=== PATIENT | male | born 1955 | race Caucasian/White ===

== ENCOUNTER 2020-10-08 14:13 | Emergency (ER) | payer MEDICARE ==
[~2020-10-08] VITALS: Ht 175.3 cm; Wt 113.4 kg
[2020-10-08 15:25] LABS: BASOPHILS ABSOLUTE AUTO 0.01 K/mm3 (0.00-0.23); BASOPHILS PERCENT AUTO 0 % (0-2); EOSINOPHILS ABSOLUTE AUTO 0.02 K/mm3 (0.00-0.68); EOSINOPHILS PERCENT AUTO 0 % (0-6); Hematocrit 47.3 % (37.0-53.0); Hemoglobin 16.2 g/dL (13.5-17.5); IMMATURE GRAN ABSOLUTE AUTO 0.01 K/mm3 (0.00-0.10); IMMATURE GRAN PERCENT AUTO 0 % (0-1); LYMPHOCYTES ABSOLUTE AUTO 1.59 K/mm3 (0.84-5.20); LYMPHOCYTES PERCENT AUTO 20 % (21-46); MONOCYTES ABSOLUTE AUTO 0.72 K/mm3 (0.16-1.47); MONOCYTES PERCENT AUTO 9 % (4-13); Mean Corpuscular HGB 30.2 pg (26.0-34.0); Mean Corpuscular HGB Conc 34.2 g/dL (31.5-36.5); Mean Corpuscular Volume 88 fL (80-100); Mean Platelet Volume 10.3 fL (9.1-12.4); NEUTROPHILS ABSOLUTE AUTO 5.51 K/mm3 (1.96-9.15); NEUTROPHILS PERCENT AUTO 70 % (41-73); Platelet Count 171 K/mm3 (150-400); RDW Standard Deviation 39.2 fL (35.1-46.3); Red Blood Cell Count 5.36 M/mm3 (4.30-5.90); White Blood Cell Count 7.86 K/mm3 (4.00-11.30)
[2020-10-08 15:50] LABS: Alanine Aminotransfer (ALT/SGP 36 U/L (12-78); Albumin, Blood 3.4 g/dL (3.4-5.0); Albumin/Globulin Ratio 0.9 (0.8-1.8); Alk Phos 92 U/L (50-136); Anion Gap 5 mmol/L (6-16); Aspartate Aminotrans (AST/SGOT 21 U/L (12-37); Blood Urea Nitrogen 7 mg/dL (8-24); Bun/Creatinine Ratio 7.8 (12.0-20.0); CO2, Blood 31 mmol/L (21-32); Chloride, Blood 102 mmol/L (98-108); Globulin, Blood 3.6 g/dL (2.2-4.0); Glomerular Filtration Rate >60 (60-); Glucose, Blood 97 mg/dL (70-99); Potassium, Blood 3.2 mmol/L (3.5-5.5); Sodium, Blood 138 mmol/L (136-145); Troponin I <0.015 ng/mL (0.000-0.040)
[2020-10-08 15:53] LABS: SARS-Cov-2 (COVID-19) PCR, MMC POSITIVE (NEGATIVE)
[2020-10-08] MEDS ORDERED: DEXA4 PO (16:43)
== END 2020-10-08 16:58 | disposition home or self-care (01) ==
LOC: ER 14:13
PROVIDERS: Physician Assistant
DX: U07.1 COVID-19 (principal); J44.9 Chronic obstructive pulmonary disease, unspecified; I10 Essential (primary) hypertension; F17.200 Nicotine dependence, unspecified, uncomplicated; Z79.899 Other long term (current) drug therapy
CPT/HCPCS: 36415; 71045; 80053; 83690; 83880; 84484; 85025; 93005; 93010; 94644; 96374; 96375; 99284-25; A9270; J1885; J7512; U0004

== ENCOUNTER → 2020-12-15 | Outpatient (CLI) | payer MEDICARE ==
[~2020-12-15] MED LIST: DEXA4 PO
[2020-12-15 13:42] LABS: BASOPHILS ABSOLUTE AUTO 0.02 K/mm3 (0.00-0.23); BASOPHILS PERCENT AUTO 0 % (0-2); EOSINOPHILS ABSOLUTE AUTO 0.04 K/mm3 (0.00-0.68); EOSINOPHILS PERCENT AUTO 0 % (0-6); Hematocrit 45.5 % (37.0-53.0); Hemoglobin 15.2 g/dL (13.5-17.5); IMMATURE GRAN ABSOLUTE AUTO 0.03 K/mm3 (0.00-0.10); IMMATURE GRAN PERCENT AUTO 0 % (0-1); LYMPHOCYTES ABSOLUTE AUTO 1.23 K/mm3 (0.84-5.20); LYMPHOCYTES PERCENT AUTO 12 % (21-46); MONOCYTES ABSOLUTE AUTO 0.52 K/mm3 (0.16-1.47); MONOCYTES PERCENT AUTO 5 % (4-13); Mean Corpuscular HGB 30.3 pg (26.0-34.0); Mean Corpuscular HGB Conc 33.4 g/dL (31.5-36.5); Mean Corpuscular Volume 91 fL (80-100); NEUTROPHILS ABSOLUTE AUTO 8.14 K/mm3 (1.96-9.15); NEUTROPHILS PERCENT AUTO 82 % (41-73); Platelet Count 203 K/mm3 (150-400); RDW Coefficient Variation 14.1 % (11.7-14.2); RDW Standard Deviation 46.5 fL (35.1-46.3); Red Blood Cell Count 5.02 M/mm3 (4.30-5.90); White Blood Cell Count 9.98 K/mm3 (4.00-11.30)
[2020-12-15 13:48] LABS: Anion Gap 7 mmol/L (6-16); Blood Urea Nitrogen 15 mg/dL (8-24); Bun/Creatinine Ratio 12.5 (12.0-20.0); CO2, Blood 29 mmol/L (21-32); Chloride, Blood 105 mmol/L (98-108); Glomerular Filtration Rate >60 (60-); Glucose, Blood 106 mg/dL (70-99); Potassium, Blood 3.7 mmol/L (3.5-5.5); Sodium, Blood 141 mmol/L (136-145)
== END | disposition home or self-care (01) ==
LOC: LAB SHORT 13:38 → LAB 13:38
PROVIDERS: Physician Assistant Medical
DX: H53.2 Diplopia (principal)
CPT/HCPCS: 80048; 85025

== ENCOUNTER 2023-08-23 15:20 | Inpatient (IN) | payer MEDICARE, OTHER ==
[~2023-08-23] VITALS: Ht 175.3 cm; Wt 90.7 kg
[~2023-08-23 15:20] MED LIST changes: +ACET325 PO; +ALBU3IS INH; +AMLO10 PO; +ASPI81CH PO; +ATOR20 PO; +BUPROPION XL150 M1 PO; +CLOP75 PO; +HYDCHL50 PO; +Incruse Ellipta 62.5 INH; +LOSARTAN POTAS100 M1 PO; +Spiriva Respimat INH; +Symbicort 160 mcg-4. INH; +TRAM50 PO; +TRIAMTERENE50 MG PO; +Ventolin/Proventil INH; +Viagra100 MG PO; +[UNRECOGNIZED DRUG - OTHER] PO
[2023-08-23] MEDS ORDERED: NS 1,000 ML IV SCH (16:05)
[2023-08-23 16:11] LABS: BASOPHILS ABSOLUTE AUTO 0.04 K/mm3 (0.00-0.23); BASOPHILS PERCENT AUTO 0 % (0-2); EOSINOPHILS ABSOLUTE AUTO 0.11 K/mm3 (0.00-0.68); EOSINOPHILS PERCENT AUTO 1 % (0-6); Hemoglobin 14.8 g/dL (13.5-17.5); IMMATURE GRAN ABSOLUTE AUTO 0.02 K/mm3 (0.00-0.10); IMMATURE GRAN PERCENT AUTO 0 % (0-1); LYMPHOCYTES ABSOLUTE AUTO 1.69 K/mm3 (0.84-5.20); LYMPHOCYTES PERCENT AUTO 19 % (21-46); MONOCYTES ABSOLUTE AUTO 0.77 K/mm3 (0.16-1.47); MONOCYTES PERCENT AUTO 9 % (4-13); Mean Corpuscular HGB 30.2 pg (26.0-34.0); Mean Corpuscular HGB Conc 33.6 g/dL (31.5-36.5); Mean Corpuscular Volume 90 fL (80-100); Mean Platelet Volume 10.5 fL (9.1-12.4); NEUTROPHILS ABSOLUTE AUTO 6.32 K/mm3 (1.96-9.15); NEUTROPHILS PERCENT AUTO 71 % (41-73); Platelet Count 231 K/mm3 (150-400); RDW Coefficient Variation 13.2 % (11.7-14.2); RDW Standard Deviation 42.7 fL (35.1-46.3); White Blood Cell Count 8.95 K/mm3 (4.00-11.30)
[2023-08-23 16:40] LABS: Albumin, Blood 2.8 g/dL (3.4-5.0); Albumin/Globulin Ratio 0.9 (0.8-1.8); Bilirubin, Total 1.4 mg/dL (0.1-1.0); Bun/Creatinine Ratio 17.9 (12.0-20.0); Creatinine, Blood 0.95 mg/dL (0.60-1.20); Potassium, Blood 3.9 mmol/L (3.5-5.5); Thyroid Stimulating Hormone 1.64 uIU/mL (0.360-4.800); Total Protein, Blood 5.8 g/dL (6.4-8.2)
[2023-08-24 00:02] LABS: Source, Urine Voided
[2023-08-24 00:08] LABS: Bilirubin, Urine Neg (Neg); Blood, Urine 1+ (Neg); Glucose Qualitative, Urine Neg (Neg); Ketones, Urine 1+ (Neg); Leukocyte Esterase, Urine Neg (Neg); Nitrite, Urine Neg (Neg); Protein, Urine 1+ (Neg); Specific Gravity, Urine 1.025 (1.003-1.022); Urobilinogen, Urine 3+ (Normal)
[2023-08-24 00:27] LABS: Appearance, Urine Clear (Clear); Color, Urine Yellow (P-Yellow)
[2023-08-24 00:28] LABS: Bacteria Rare /hpf; Mucus Light (0-Heavy); Red Blood Cells, Urine 0-2 /hpf (0-2); Squamous Epithelial Cells Rare /hpf (Few); White Blood Cells, Urine 0-2 /hpf (0-5)
[2023-08-24 19:35] VITALS: BP 165/98
--- NOTE | 2023-08-24 20:08 | NUR ---
DAY SHIFT SUMMARY: A&Ox3-4. PLEASANT AND COOPERATIVE WITH CARE. CALLS APPRORPIATELY. ABLE TO ADVOCATE MOST NEEDS. FLAT AFFECT. FEEDS SELF. LEFT-SIDED DEFICIT WITH LEFT-HANDED SWELLING. WOUND TO SACRUM BEGINNING; MEPILEX PLACED. WOUND TO LEFT POSTERIOR WRIST; UNSURE OF HOW HE GOT IT. USES URINAL. BED IN LOWEST POSITION. CALL LIGHT WITHIN REACH. NEEDS MET. REPORT TO ONCOMING RN.
[2023-08-24 20:26] VITALS: BP 151/92
[2023-08-25 03:49] VITALS: BP 177/96
[2023-08-25 04:25] VITALS: BP 139/93
[2023-08-25 05:23] LABS: BASOPHILS ABSOLUTE AUTO 0.03 K/mm3 (0.00-0.23); BASOPHILS PERCENT AUTO 0 % (0-2); EOSINOPHILS ABSOLUTE AUTO 0.08 K/mm3 (0.00-0.68); EOSINOPHILS PERCENT AUTO 1 % (0-6); Hematocrit 44.1 % (37.0-53.0); Hemoglobin 14.6 g/dL (13.5-17.5); IMMATURE GRAN ABSOLUTE AUTO 0.01 K/mm3 (0.00-0.10); IMMATURE GRAN PERCENT AUTO 0 % (0-1); LYMPHOCYTES ABSOLUTE AUTO 2.06 K/mm3 (0.84-5.20); LYMPHOCYTES PERCENT AUTO 23 % (21-46); MONOCYTES ABSOLUTE AUTO 0.73 K/mm3 (0.16-1.47); MONOCYTES PERCENT AUTO 8 % (4-13); Mean Corpuscular HGB 29.3 pg (26.0-34.0); Mean Corpuscular HGB Conc 33.1 g/dL (31.5-36.5); Mean Corpuscular Volume 89 fL (80-100); Mean Platelet Volume 10.6 fL (9.1-12.4); NEUTROPHILS ABSOLUTE AUTO 6.02 K/mm3 (1.96-9.15); NEUTROPHILS PERCENT AUTO 67 % (41-73); Platelet Count 206 K/mm3 (150-400); RDW Coefficient Variation 12.9 % (11.7-14.2); RDW Standard Deviation 42.1 fL (35.1-46.3); Red Blood Cell Count 4.98 M/mm3 (4.30-5.90); White Blood Cell Count 8.93 K/mm3 (4.00-11.30)
--- NOTE | 2023-08-25 05:53 | NUR ---
IT INVESTMENT/PORTFOLIO MANAGER PATIENT IS A&OX4, BLOOD PRESSURE RUNS FROM SUSHILA TO NORMAL WITH IN MINUTES. STAFF HAS BEEN CHECKING IT AT LEST FEW MINUTES APART TO GET AN ACCURATE READING. PATIENT HAS URINARY URGENCY AND PATIENT IS FORGETFUL WHEN IT COMES TO USING THE CALL LIGHT. BED IS AT A LOWER POSITION, CALL LIGHT IS WITHIN REACH, AND URINAL AT BEDSIDE.
[2023-08-25 06:04] LABS: Albumin, Blood 2.7 g/dL (3.4-5.0); Albumin/Globulin Ratio 0.9 (0.8-1.8); Bilirubin, Total 1.1 mg/dL (0.1-1.0); Bun/Creatinine Ratio 15.3 (12.0-20.0); Calcium, Blood 7.9 mg/dL (8.5-10.1); Creatinine, Blood 0.78 mg/dL (0.60-1.20); Globulin, Blood 2.9 g/dL (2.2-4.0); Magnesium, Blood 2.2 mg/dL (1.6-2.4); Potassium, Blood 3.5 mmol/L (3.5-5.5); Total Protein, Blood 5.6 g/dL (6.4-8.2)
[2023-08-25 08:27] VITALS: BP 143/93
[2023-08-25] MEDS ORDERED: Enoxaparin 40 MG/0.4 ML SYR SC SCH (09:00)
[2023-08-25] MEDS ORDERED: Losartan Potassium 25 MG Tab PO SCH (09:00)
[2023-08-25] MEDS ORDERED: Clopidogrel Bisulfate 75 MG Tab PO SCH (09:00)
[2023-08-25] MEDS ORDERED: Aspirin 81 MG Chew PO SCH (09:00)
--- NOTE | 2023-08-25 12:32 | NUR ---
MET WITH PATIENT TO DISCUSS POLST AND CODE STATUS. PATIENT WAS AWOKEN WHEN I ENTERED THE ROOM. REVIEWED POLST FORM AND HE ELECTED FOR COMFORT MEASURES ONLY AND DNR CODE STATUS. PATIENT UNABLE TO SIGN DUE TO HAND WOUND
[2023-08-25 15:48] VITALS: BP 136/87
--- NOTE | 2023-08-25 18:28 | NUR ---
SHIFT SUMMARY: PATIENT REFUSES MORNING MEDS; DR. REGAN NOTIFIED. NO EVENTS OR CHANGES WITH PATIENT THROUGHOUT THE SHIFT. PLAN OF CARE ONGOING.
[2023-08-25 19:24] VITALS: BP 137/90
[2023-08-26 03:52] VITALS: BP 162/85
[2023-08-26 07:18] VITALS: BP 155/99
[2023-08-26 14:34] VITALS: BP 119/74
[2023-08-26 19:30] VITALS: BP 136/87
[2023-08-27 04:26] VITALS: BP 118/67
--- NOTE | 2023-08-27 05:36 | NUR ---
EQUIPMENT MAINTENANCE SUPERVISOR UNABLE TO ASSESS PATIENT ORIENTATION, PATIENT IS NONVERBAL BUT SMILES WHEN HER NAME IS CALLED. PATIENT IS BEDBOUND, AND Q2TURN. PATIENT HAS A LIN IN THAT IS DRAINING WELL. PATIENT IS A G-TUBE AND HAS JEVITY 1.2 RUNNING AT 45ML AN HOUR AUTH A 250 FLUID FLUSH [id number].
--- NOTE | 2023-08-27 05:55 | NUR ---
SCALE AGENT PATIENT IS A&OX1-2, CONFUSED, AND IMPULSIVELY GET UP TO USE THE URINAL. PATIENT IS FAILURE TO THRIVE AND HAS BEED REFUSING HAS MEDS. NO MEDS WERE SCHEDULE FOR HIM LASTNIGHT. PATIENT ALSO REFUSES FOOD DURING THE DAY SHIFT BUT FELT VERY HUNGRY LAST IGHT AND REQUESTED FOR A SANDWISH. PATIENT IS CONTINENT /INCONTINENT, HAS URINARY URGENCY. PATIENT SLEPT GOOD LASTNIGHT AND HAD MINIMAL IMPULSIVENESS.
[2023-08-27 07:33] VITALS: BP 133/80
[2023-08-27 15:42] VITALS: BP 161/91
--- NOTE | 2023-08-27 16:59 | NUR ---
NO ACUTE CHANGES. PT CONTINUED TO BE AOX1-2. PT IS INCONTENT OF URINE AND HAS BEEN RESTING IN BED ALL DAY. PT ALLOWED HIMSELF TO BE CLEANED UP AND HAS BEEN COOPERATIVE OF CARE. BED ALARM IS IN PLACE WILL CONTINUE TO MONITOR.
[2023-08-27 19:33] VITALS: BP 131/80
[2023-08-28 04:33] VITALS: BP 174/101
--- NOTE | 2023-08-28 06:51 | NUR ---
END OF SHIFT SUMMARY PT A&O TO PERSON, SOMETIMES PLACE/SITUATION. REPOSITIONS SELF IN BED. INCONTINENT OF URINE, FREQUENT YARELI CARE PROVIDED. NO ACUTE EVENTS OVERNIGHT.
[2023-08-28 07:02] VITALS: BP 149/71
--- NOTE | 2023-08-28 09:00 | NUR ---
Pt laying in bed watching tv, a/ox2, cooperative with care, follows commands well, denies pain, lungs are clear dim in bases, resp even and unlabored, no cough noted, hrr, no edema noted, ppp+1 cap refill <3 sec, vs stable, afebrile, piv to rfa site is clear and patenet, s.l., btx4, abd flat soft nontender, voids via urinal and is incont, briefs in place, skin c/w/d, antonio, 1-2 person assist, agueda, call light in reach.
[2023-08-28 15:33] VITALS: BP 161/96
--- NOTE | 2023-08-28 18:04 | NUR ---
pt had an uneventful day, has required several bed changes today, no acute changes this shift. call light in reach.
[2023-08-28 19:34] VITALS: BP 136/90
[2023-08-29 04:15] VITALS: BP 154/83
--- NOTE | 2023-08-29 04:25 | NUR ---
END OF SHIFT SUMMARY PT ALERT, ORIENTED TO PERSON, SOMETIMES PLACE/SITUATION. PT REQUESTING SNACKS, TOLERATING WELL, FEEDING SELF WITH RUE SAFELY ONLY REQUIRING ASSIST WITH OPENING PACKAGING. SEVERAL INCONTINENT VOIDS, YARELI CARE PROVIDED. NO ACUTE EVENTS OVERNIGHT.
[2023-08-29 07:46] VITALS: BP 146/89
[2023-08-29 15:08] VITALS: BP 128/86
--- NOTE | 2023-08-29 17:55 | NUR ---
SHIFT SUMMARY SPOKE WITH DR. CHARLES TODAY. PLAN TO PERSUE PHYSICAL & OCCUPATIONAL THERAPY WE WAIT FOR PLACEMENT. PT IS A HIGH RISK FOR FAILURE TO THRIVE HE HAS LITTLE MOTIVATION. PT DID WORK WITH PT/OT TODAY. UP TO CHAIR ONCE FOR A FEW HOURS. VS REVIEWED. CALL LIGHT IN REACH. BED ALARM IN PLACE. REDNESS NOTED TO R KNEE. SLIGHTLY WARM TO TOUCH. PT STATES NO DISCOMFORT HOWEVER. NO OTHER ACUTE CHANGES IN ASSESSMENT AT THIS TIME.
[2023-08-29 21:54] VITALS: BP 149/91
[2023-08-30 02:54] VITALS: BP 169/100
[2023-08-30 05:58] LABS: BASOPHILS ABSOLUTE AUTO 0.04 K/mm3 (0.00-0.23); BASOPHILS PERCENT AUTO 1 % (0-2); EOSINOPHILS ABSOLUTE AUTO 0.11 K/mm3 (0.00-0.68); EOSINOPHILS PERCENT AUTO 1 % (0-6); Hematocrit 43.2 % (37.0-53.0); Hemoglobin 14.4 g/dL (13.5-17.5); IMMATURE GRAN ABSOLUTE AUTO 0.02 K/mm3 (0.00-0.10); IMMATURE GRAN PERCENT AUTO 0 % (0-1); LYMPHOCYTES ABSOLUTE AUTO 2.34 K/mm3 (0.84-5.20); LYMPHOCYTES PERCENT AUTO 27 % (21-46); MONOCYTES ABSOLUTE AUTO 0.62 K/mm3 (0.16-1.47); MONOCYTES PERCENT AUTO 7 % (4-13); Mean Corpuscular HGB 29.9 pg (26.0-34.0); Mean Corpuscular HGB Conc 33.3 g/dL (31.5-36.5); Mean Corpuscular Volume 90 fL (80-100); Mean Platelet Volume 11.2 fL (9.1-12.4); NEUTROPHILS PERCENT AUTO 63 % (41-73); Platelet Count 209 K/mm3 (150-400); RDW Coefficient Variation 13.6 % (11.7-14.2); RDW Standard Deviation 44.3 fL (35.1-46.3); Red Blood Cell Count 4.81 M/mm3 (4.30-5.90); White Blood Cell Count 8.53 K/mm3 (4.00-11.30)
--- NOTE | 2023-08-30 06:12 | NUR ---
SUMMARY: PT A/O TO PERSON, PLACE AND OCCASIONALLY SITUATION. BED ALARM IS ON FOR IMPULSIVITY AND HE'S UP W/1-2PA TO BSC. HE IS CONTINENT/INCONTINENT W/ATTENDS CHANGED PRN. L.SIDE WEAKNESS FROM PREVIOUS CVA PERSISTS AND L.ARM REMAINS SWOLLEN AND ELEVATED ON PILLOWS. PT DENIES PAIN AND ALL OTHER COMPLAINTS. NO ACUTE CHANGES, VSS/AFEBRILE. SNF PLACEMENT PENDING. WCTM AND REPORT TO DAY RN.
[2023-08-30 06:44] LABS: Albumin, Blood 2.6 g/dL (3.4-5.0); Albumin/Globulin Ratio 0.9 (0.8-1.8); Bilirubin, Total 0.8 mg/dL (0.1-1.0); Calcium, Blood 8.3 mg/dL (8.5-10.1); Creatinine, Blood 0.91 mg/dL (0.60-1.20); Potassium, Blood 3.7 mmol/L (3.5-5.5); Total Protein, Blood 5.6 g/dL (6.4-8.2)
[2023-08-30 07:55] VITALS: BP 147/84
--- NOTE | 2023-08-30 10:54 | NUR ---
SPOKE WITH PHYSICAN ABOUT PT BEING UNCOMPLIENT AND REFUSING TO WORK WITH ST. RECEIVED T.O. FOR REGULAR DIET.
[2023-08-30 15:19] VITALS: BP 130/77
--- NOTE | 2023-08-30 15:45 | NUR ---
SHIFT SUMMARY PT IS A&O TO SELF, PLACE AND SOMEWHAT OF SITUATION. PT NOTED TO BE ASSIST X1 WITH DANISH WALKER. PT GOT UP AND ATE BREAKFAST IN CHAIR THIS MORNING. PT REFUSED TO WORK WITH OT THIS SHIFT. PT CONT TO REMAIN INCONT OF BLADDER. LEFT SIDED WEAKNESS D/T PREVIOUS CVA. PT LEFT HAND NOTED TO HAVE SOME SWELLING, ELEVATED ON PILLOW WHILE IN BED.
[2023-08-30 19:17] VITALS: BP 121/76
[2023-08-31 02:39] VITALS: BP 163/87
--- NOTE | 2023-08-31 06:01 | NUR ---
SUMMARY: PT A/O TO PERSON AND PLACE BUT SITUATIONAL AWARENESS FLUCTUATES. BED ALARM IS ON FOR IMPULSIVITY AND HE'S UP W/1-2PA W/DANISH WALKER. HE HAS L.SIDE WEAKNESS FROM PREVIOUS CVA AND L.ARM REMAINS EDEMATOUS. PT IS MOSTLY INCONTINENT OF BOWEL AND BLADDER AND HAD X1 STOOL INCONTINENCE REQUIRING SHOWER, LINEN AND ATTENDS CHANGE. HE DENIES PAIN AND ALL OTHER COMPLAINTS. NO ACUTE CHANGES, VSS/AFEBRILE. SNF PLACEMENT PENDING. WCTM AND REPORT TO DAY RN.
[2023-08-31 09:42] VITALS: BP 130/108
[2023-08-31 19:22] VITALS: BP 145/87
--- NOTE | 2023-08-31 19:29 | NUR ---
DAY SHIFT SUMMARY: NO ACUTE EVENTS TO REPORT THIS SHIFT. PT A&O X1-2 (PLACE & SELF); CALM AND COOPERATIVE WITH CARE. RESIDUAL LEFT-SIDED WEAKNESS R/T HX CVA; PT UP WITH 2-ASSIST & DANISH-WALKER. NO C/O PAIN THIS SHIFT. PT & OT FOLLOWING. REPORT GIVEN TO ONCOMING RN.
--- NOTE | 2023-08-31 21:08 | NUR ---
PATIENT APPEARS TO BE SLEEPING AT THIS TIME. DOES NOT APPEAR TO BE IN ANY DISTRESS. CARE IS ONGOING.
[2023-09-01 02:24] VITALS: BP 145/77
--- NOTE | 2023-09-01 03:57 | NUR ---
SHIFT SUMMARY PATIENT IS ORIENTED TO SELF AND PLACE ONLY. COOPERATIVE AND CALM WITH CARE. PATIENT IS A TWO PERSON ASSIST WITH A DANISH WALKER. BED ALARM IS ON THE PATIENT HAS A TENDENCY TO BE IMPULSIVE. THERE ARE NO ISSUES WITH THIS DURING THIS SHIFT. PATIENT DENIES PAIN OR DISCOMFORT. CONDOM CATHETER PLACED IN THE EARLY EVENING, WHICH IS EFFECTIVE IN RELIEVING THE PATIENT'S URINARY URGENCY AND ISSUES RELATED TO THAT. PATIENT SLEEPS THROUGHOUT MOST OF SHIFT. WAKES IN THE MORNING AND WATCHES TELEVISION. DENIES NEEDS AT THIS TIME. AWAITING PLACEMENT INTO SNF. THIS RN WILL RELAY ALL INFORMATION TO ONCOMING AM NURSE. NO ACUTE CHANGES DURING THIS SHIFT.
[2023-09-01 05:34] LABS: BASOPHILS ABSOLUTE AUTO 0.03 K/mm3 (0.00-0.23); BASOPHILS PERCENT AUTO 0 % (0-2); EOSINOPHILS ABSOLUTE AUTO 0.11 K/mm3 (0.00-0.68); EOSINOPHILS PERCENT AUTO 1 % (0-6); Hemoglobin 13.9 g/dL (13.5-17.5); IMMATURE GRAN ABSOLUTE AUTO 0.02 K/mm3 (0.00-0.10); IMMATURE GRAN PERCENT AUTO 0 % (0-1); LYMPHOCYTES ABSOLUTE AUTO 2.19 K/mm3 (0.84-5.20); LYMPHOCYTES PERCENT AUTO 24 % (21-46); MONOCYTES PERCENT AUTO 8 % (4-13); Mean Corpuscular HGB 29.8 pg (26.0-34.0); Mean Corpuscular HGB Conc 33.1 g/dL (31.5-36.5); Mean Corpuscular Volume 90 fL (80-100); Mean Platelet Volume 10.9 fL (9.1-12.4); NEUTROPHILS ABSOLUTE AUTO 6.06 K/mm3 (1.96-9.15); NEUTROPHILS PERCENT AUTO 67 % (41-73); Platelet Count 183 K/mm3 (150-400); RDW Coefficient Variation 13.5 % (11.7-14.2); RDW Standard Deviation 44.8 fL (35.1-46.3); Red Blood Cell Count 4.67 M/mm3 (4.30-5.90); White Blood Cell Count 9.11 K/mm3 (4.00-11.30)
[2023-09-01 06:06] LABS: Albumin, Blood 2.7 g/dL (3.4-5.0); Bun/Creatinine Ratio 19.7 (12.0-20.0); Calcium, Blood 8.1 mg/dL (8.5-10.1); Creatinine, Blood 0.91 mg/dL (0.60-1.20); Globulin, Blood 2.8 g/dL (2.2-4.0); Total Protein, Blood 5.5 g/dL (6.4-8.2)
[2023-09-01 07:16] VITALS: BP 124/87
[2023-09-01] MEDS ORDERED: Atorvastatin 40 MG Tab PO SCH (09:00)
[2023-09-01 15:33] VITALS: BP 127/81
--- NOTE | 2023-09-01 15:39 | NUR ---
SHIFT SUMMARY PT RESTING QUIETLY AT START OF SHIFT. WOKE EASILY FOR CARE. PT VERY WEAK ON L SIDE; GROSS MOTOR SKILLS ONLY. PT REFUSING TO WORK WITH THERAPY TODAY. PT LATER AGREEABLE TO GET UP TO CHAIR FOR LUNCH, BUT UNABLE TO DO SO AFTER STANDING AT SIDE OF BED FOR TEN MINUTES AND COULDN'T GET FEET OR LEGS TO MOVE EVEN TO PIVOT. PT IS A HEAVY 2P MAX ASSIST USING G/B AND HEMIWALKER JUST TO STAND AT EOB. PT UNABLE TO USE L HAND AT ALL. IS ABLE TO BEAR WT ON L LEG, BUT UNABLE TO MAKE L LEG/L FOOT MOVE ONCE STANDING. PT COULD STATE HIS NAME THIS AM, BUT COULD NOT REMEMBER HIS BIRTHDAY. LEAD DIE MOLDER AND PALLIATIVE CARE UPDATED ON PT STATUS. NO C/O PAIN. CONDOM CATH IN PLACE. DENIES FURTHER NEEDS AT THIS TIME.
--- NOTE | 2023-09-01 15:56 | NUR ---
MET WITH KENDY TO DISCUSS GOALS OF CARE. PER PT AND OT HE HAS NOT WORKED WITH THEM IN A FEW DAYS. I EXPRESSED CONCERN FOR HIS ABILITY TO CARE FOR HIMSELF LIVING ALONE IF HE DOESNT MAKE IMPROVMENTS PHYSICALLY. HE REPORTED THAT HE WANTS TO GO HOME. HE REPORTED THAT HE WOULD BE FINE AND WASNT CONCERNED ABOUT HIS PHYSICAL LIMITATIONS. PER ELECTRICAL TROUBLESHOOTER HE WAS ABLE TO STAND AT THE SIDE OF THE BED BUT WAS VERY UNSTABLE AND SHE WAS CONCERNED HE WOULD FALL. HE WAS NOT ABLE TO MAKE ANY PURPOSEFUL STEPS FORWARD. WE DISCUSSED THAT HE IS AT A [place] AND HE CAN CHOOSE TO WORK WITH THERAPY AND TRY TO IMPROVE AND GET STRONG ENOUGH TO SAFELY RETRUN HOME, OR HE CAN FOCUS CARE ON COMFORT AND QUALITY AND THINK ABOUT HOSPICE SERVICES. HIS KPS SCORE IS 50%. REQUESTED A COG EVAL TO ENSURE HE IS CLEAR OF MIND AND ABLE TO MAKE INFORMED DECISIONS. PC WILL REAMIN AVALIABLE.
[2023-09-01 20:31] VITALS: BP 135/86
[2023-09-02 03:26] VITALS: BP 169/101
--- NOTE | 2023-09-02 03:53 | NUR ---
Pt left hand has a wound on top of it, left hand is also swollen, pt denied any pain when i asked it if was hurting at this time.
--- NOTE | 2023-09-02 04:22 | NUR ---
SHIFT SUMMARY PATIENT HAD NO ACUTE CHANGES. AXOX 2 AND BEDREST. INCONTINENT. LS WEAKNESS. PIV INTACT. DENIES CHEST PAIN, SOB, AND N/V. VSS/AFEBRILE. SLEPT MOST OF THE SHIFT. CALL LIGHT IN REACH. BED IN LOWEST POSITION AND ALARM ACTIVATED. WILL CONTINUE TO MONITOR UNTIL DAY SHIFT NURSE ASSUMES CARE.
[2023-09-02 05:35] LABS: BASOPHILS ABSOLUTE AUTO 0.04 K/mm3 (0.00-0.23); BASOPHILS PERCENT AUTO 0 % (0-2); EOSINOPHILS ABSOLUTE AUTO 0.15 K/mm3 (0.00-0.68); EOSINOPHILS PERCENT AUTO 2 % (0-6); Hematocrit 41.5 % (37.0-53.0); Hemoglobin 13.8 g/dL (13.5-17.5); IMMATURE GRAN ABSOLUTE AUTO 0.02 K/mm3 (0.00-0.10); IMMATURE GRAN PERCENT AUTO 0 % (0-1); LYMPHOCYTES ABSOLUTE AUTO 2.11 K/mm3 (0.84-5.20); LYMPHOCYTES PERCENT AUTO 23 % (21-46); MONOCYTES ABSOLUTE AUTO 0.71 K/mm3 (0.16-1.47); MONOCYTES PERCENT AUTO 8 % (4-13); Mean Corpuscular HGB 30.1 pg (26.0-34.0); Mean Corpuscular HGB Conc 33.3 g/dL (31.5-36.5); Mean Corpuscular Volume 91 fL (80-100); NEUTROPHILS ABSOLUTE AUTO 6.12 K/mm3 (1.96-9.15); NEUTROPHILS PERCENT AUTO 67 % (41-73); Platelet Count 195 K/mm3 (150-400); RDW Coefficient Variation 13.4 % (11.7-14.2); RDW Standard Deviation 44.6 fL (35.1-46.3); Red Blood Cell Count 4.58 M/mm3 (4.30-5.90); White Blood Cell Count 9.15 K/mm3 (4.00-11.30)
[2023-09-02 05:58] LABS: Bun/Creatinine Ratio 27.2 (12.0-20.0); Calcium, Blood 8.2 mg/dL (8.5-10.1); Creatinine, Blood 0.77 mg/dL (0.60-1.20); Potassium, Blood 3.8 mmol/L (3.5-5.5)
[2023-09-02 07:25] VITALS: BP 155/100
[2023-09-02 15:43] VITALS: BP 139/121
--- NOTE | 2023-09-02 18:38 | NUR ---
PT IS AOX2 AND COOPERATIVE OF CARE. PT IS INCONTENT OF BOWEL AND URINE. PT WAS ABLE TO BE UP IN CHAIR A TWO PERSON ASSIST. PT DOES NOT ALWAYS CALL, BUT WILL AT TIMES. BED ALARM IS IN PLACE WILL CONTINUE TO MONITOR.
[2023-09-02 21:22] VITALS: BP 159/92
[2023-09-03 03:43] VITALS: BP 165/91
[2023-09-03 05:18] LABS: BASOPHILS ABSOLUTE AUTO 0.04 K/mm3 (0.00-0.23); BASOPHILS PERCENT AUTO 0 % (0-2); EOSINOPHILS ABSOLUTE AUTO 0.13 K/mm3 (0.00-0.68); EOSINOPHILS PERCENT AUTO 1 % (0-6); Hematocrit 44.3 % (37.0-53.0); Hemoglobin 14.3 g/dL (13.5-17.5); IMMATURE GRAN ABSOLUTE AUTO 0.03 K/mm3 (0.00-0.10); IMMATURE GRAN PERCENT AUTO 0 % (0-1); LYMPHOCYTES ABSOLUTE AUTO 2.04 K/mm3 (0.84-5.20); LYMPHOCYTES PERCENT AUTO 20 % (21-46); MONOCYTES ABSOLUTE AUTO 0.76 K/mm3 (0.16-1.47); MONOCYTES PERCENT AUTO 7 % (4-13); Mean Corpuscular HGB Conc 32.3 g/dL (31.5-36.5); Mean Corpuscular Volume 93 fL (80-100); Mean Platelet Volume 10.8 fL (9.1-12.4); NEUTROPHILS ABSOLUTE AUTO 7.26 K/mm3 (1.96-9.15); NEUTROPHILS PERCENT AUTO 71 % (41-73); Platelet Count 200 K/mm3 (150-400); RDW Coefficient Variation 13.2 % (11.7-14.2); Red Blood Cell Count 4.77 M/mm3 (4.30-5.90); White Blood Cell Count 10.26 K/mm3 (4.00-11.30)
--- NOTE | 2023-09-03 06:13 | NUR ---
SHANK BREAKER SUMMARY PT A/OX2. MULTPLE EPISODES OF INCONTINENCE T/O THE NIGHT--FOUND PT BEDDING TO BE SOAKED BUT BRIEF TO BE DRY. PT COULD NOT EXPLAIN HOW THAT HAPPENED. PT HYPERTENSIVE WITH VITALS CHECKS. PT ABLE TO MAKE NEEDS KNOWN WHEN PROMPTED. PT HAD VISITOR IN THE EVENING NAMED SABINA; STATES HE IS A FRIEND AND CONTACT FOR THE PT; PT AFFIRMED HE WAS AGREEABLE TO THE CONTACT. SABINA'S NUMBER IS [phone]. SABINA STATES FRIEND NAMED YANET WILL BE MOVING IN TO THE PT'S HOME TO BE STEAM BOILER FIREMAN CAREGIVER. YANET'S NUMBER IS [phone].
[2023-09-03 06:26] LABS: Albumin, Blood 2.8 g/dL (3.4-5.0); Albumin/Globulin Ratio 0.9 (0.8-1.8); Bun/Creatinine Ratio 18.7 (12.0-20.0); Calcium, Blood 8.1 mg/dL (8.5-10.1); Creatinine, Blood 0.85 mg/dL (0.60-1.20); Globulin, Blood 3.1 g/dL (2.2-4.0); Potassium, Blood 3.8 mmol/L (3.5-5.5); Total Protein, Blood 5.9 g/dL (6.4-8.2)
[2023-09-03 07:34] VITALS: BP 135/76
[2023-09-03 15:19] VITALS: BP 121/74
--- NOTE | 2023-09-03 18:06 | NUR ---
SHIFT SUMMARY PATIENT A/OX2, CONFUSED, AND FORGETFUL. TRANSFERRED TO THE CHAIR TWICE TODAY FOR MEAL TIME. BED ALARM AND CHAIR ALARM IN PLACE, PATIENT FORGETFUL AND ATTEMPTS TO TRANSFER INDEPENDENTLY. VITAL SIGNS STABLE, DENIES PAIN THIS SHIFT. PATIENT WITH GOOD APPETITE, EATING 75-100% OF ALL MEALS. PATIENT INCONTINENT OF URINE. NO OTHER CONCERNS AT THIS TIME.
[2023-09-03 19:32] VITALS: BP 133/86
[2023-09-04 01:55] VITALS: BP 148/77
--- NOTE | 2023-09-04 05:02 | NUR ---
PARTNERSHIP MANAGER SUMMARY PT A/OX2. NO ACUTE CHANGES. PT UNABLE TO MAKE NEEDS KNOWN. BED ALARM IN PLACE FOR FALL PREVENTION. REGULAR 1-2 HOUR ROUNDING TO ENSURE NEEDS ASSESSED AND MET. CALL LIGHT ACCESSIBLE.
[2023-09-04 05:34] LABS: BASOPHILS ABSOLUTE AUTO 0.05 K/mm3 (0.00-0.23); BASOPHILS PERCENT AUTO 1 % (0-2); EOSINOPHILS ABSOLUTE AUTO 0.13 K/mm3 (0.00-0.68); EOSINOPHILS PERCENT AUTO 2 % (0-6); Hematocrit 46.1 % (37.0-53.0); Hemoglobin 15.2 g/dL (13.5-17.5); IMMATURE GRAN ABSOLUTE AUTO 0.03 K/mm3 (0.00-0.10); IMMATURE GRAN PERCENT AUTO 0 % (0-1); LYMPHOCYTES ABSOLUTE AUTO 2.26 K/mm3 (0.84-5.20); LYMPHOCYTES PERCENT AUTO 26 % (21-46); MONOCYTES ABSOLUTE AUTO 0.65 K/mm3 (0.16-1.47); MONOCYTES PERCENT AUTO 7 % (4-13); Mean Corpuscular HGB 29.9 pg (26.0-34.0); Mean Corpuscular Volume 91 fL (80-100); Mean Platelet Volume 10.8 fL (9.1-12.4); NEUTROPHILS ABSOLUTE AUTO 5.68 K/mm3 (1.96-9.15); NEUTROPHILS PERCENT AUTO 65 % (41-73); Platelet Count 192 K/mm3 (150-400); RDW Coefficient Variation 13.2 % (11.7-14.2); Red Blood Cell Count 5.08 M/mm3 (4.30-5.90)
[2023-09-04 06:19] LABS: Bun/Creatinine Ratio 19.7 (12.0-20.0); Calcium, Blood 8.2 mg/dL (8.5-10.1); Creatinine, Blood 0.92 mg/dL (0.60-1.20); Potassium, Blood 3.9 mmol/L (3.5-5.5)
[2023-09-04 08:12] VITALS: BP 131/86
[2023-09-04 15:27] VITALS: BP 128/91
--- NOTE | 2023-09-04 16:24 | NUR ---
SHIFT SUMMARY PATIENT NOT VERY INTERACTIVE THIS SHIFT, SLEEPING MOSTLY EXCEPT FOR MEALS AND MINOR INTERACTIONS WITH STAFF. INCONTINENT EPISODES, ABLE TO USE URINAL IF PROMPTED. FLACCID LEFT ARM. A/O X 2. ABLE TO TAKE PILLS WHOLE WITH WATER, EATING ADEQUATE AMOUNT AT MEAL TIMES. CALL LIGHT IN REACH. CARES ONGOING.
[2023-09-04 19:45] VITALS: BP 134/87
[2023-09-05 02:59] VITALS: BP 139/99
--- NOTE | 2023-09-05 04:29 | NUR ---
OPERATING ROOM NURSE SUMMARY NO ACUTE CHANGES. PT A/OX2. PT NOT ABLE TO USE CALL LIGHT OR MAKE NEEDS KNOWN. REGULAR INTERVAL ROUNDING COMPLETE TO ASSESS NEEDS T/O THE SHIFT. PT HAVING MULTIPLE EPISODES OF INCONTINENCE--URINE AND BM. PT DRINKING FLUIDS ADEQUATELY. BED ALARM IN PLACE.
[2023-09-05 05:23] LABS: BASOPHILS ABSOLUTE AUTO 0.02 K/mm3 (0.00-0.23); BASOPHILS PERCENT AUTO 0 % (0-2); EOSINOPHILS ABSOLUTE AUTO 0.11 K/mm3 (0.00-0.68); EOSINOPHILS PERCENT AUTO 1 % (0-6); Hematocrit 41.4 % (37.0-53.0); Hemoglobin 13.8 g/dL (13.5-17.5); IMMATURE GRAN ABSOLUTE AUTO 0.02 K/mm3 (0.00-0.10); IMMATURE GRAN PERCENT AUTO 0 % (0-1); LYMPHOCYTES ABSOLUTE AUTO 2.05 K/mm3 (0.84-5.20); LYMPHOCYTES PERCENT AUTO 22 % (21-46); MONOCYTES ABSOLUTE AUTO 0.68 K/mm3 (0.16-1.47); MONOCYTES PERCENT AUTO 7 % (4-13); Mean Corpuscular HGB 30.1 pg (26.0-34.0); Mean Corpuscular HGB Conc 33.3 g/dL (31.5-36.5); Mean Corpuscular Volume 90 fL (80-100); Mean Platelet Volume 10.8 fL (9.1-12.4); NEUTROPHILS ABSOLUTE AUTO 6.55 K/mm3 (1.96-9.15); NEUTROPHILS PERCENT AUTO 70 % (41-73); Platelet Count 196 K/mm3 (150-400); RDW Coefficient Variation 13.5 % (11.7-14.2); RDW Standard Deviation 44.6 fL (35.1-46.3); Red Blood Cell Count 4.59 M/mm3 (4.30-5.90); White Blood Cell Count 9.43 K/mm3 (4.00-11.30)
[2023-09-05 05:49] LABS: Bun/Creatinine Ratio 27.4 (12.0-20.0); Calcium, Blood 7.9 mg/dL (8.5-10.1); Creatinine, Blood 0.91 mg/dL (0.60-1.20); Potassium, Blood 4.1 mmol/L (3.5-5.5)
[2023-09-05 07:41] VITALS: BP 141/90
[2023-09-05 15:29] VITALS: BP 128/89
--- NOTE | 2023-09-05 16:15 | NUR ---
NO ACUTE CHANGES TODAY. PT HAS BEEN RESTING IN BED AND AT TIMES IS VERY TIRED AND DOESN'T TALKE MUCH THEN OTHER TIMES VERBALIZES NEEDS. INCONTENT OF URINE AND BOWEL. BED ALARM IN PLACE WILL CONTINUE TO MONITOR.
[2023-09-05 19:40] VITALS: BP 153/89
[2023-09-06 03:22] VITALS: BP 150/96
--- NOTE | 2023-09-06 05:24 | NUR ---
PERSONNEL RESEARCH PSYCHOLOGIST SUMMARY NO ACUTE CHANGES. VITAL SIGNS REVIEWED. PT HYPERTENSIVE. PT DENIES PAIN. MULTPLE EPISODES OF INCONTINENCE OF BOWEL AND BLADDER. PT CAN MAKE NEEDS KOWN WHEN PROMPTED/ASSESSED. REGULAR INTERVAL ROUNDING COMPLETE T/O THE SHIFT. CALL LIGHT ACCESSIBLE. BED ALARM IN PLACE.
[2023-09-06 08:05] VITALS: BP 132/76
[2023-09-06 14:22] VITALS: BP 140/65
--- NOTE | 2023-09-06 17:21 | NUR ---
End of Shift Pt A&O x3. VSS. Spo2 > 92% on RA. Pt intermittently cooperative w/ activities & care. Pt at times w/ cadena "no" when prompting care or mobility. Pt up to chair twice today w/ therapy, otherwise refusing other times. This RN assisting pt w/ transfer back to bed this AM from chair w/ pt RAJINDER in sling & pt attemping to use cale walker w/ pt inability to keep all four points of cale walker on ground. Pt unstable w/ cale walker despite verbal cues for use of cale walker. Pt irritable w/ instruction. This RN having to hold pt steady. Pt refusing lunch this afternoon, but tray left at bedside w/ pt then nearly fully eating meal. Pt incontinent, wearing attends. Bed alarm & chair alarm on w/ pt setting off chair alarm today w/ this RN right outside of pt rm when alarm set off. Pt wobbly standing in front of chair, holding on to chair arm, attempting to get in bed next to chair. This RN assisting pt back to bed w/ pt nearly falling onto bed. This RN instructing pt to call for assistance before transfering. Pt disagreed w/ need for assistance. Bed alarm on.
[2023-09-06 19:40] VITALS: BP 140/80
[2023-09-07 02:20] VITALS: BP 148/93
[2023-09-07 07:13] VITALS: BP 135/80
[2023-09-07 15:38] VITALS: BP 140/101
--- NOTE | 2023-09-07 16:38 | NUR ---
NO ACUTE CHANGES PT CONTINUES TO BE AOX2 AND COOPERATIVE OF CARE.PT CAN CALL OFF AND ON WITH NEEDS HE CAN AT TIMES BE IMPULSIVE. INCONTENT OF URINE. NO DISTRESS NOTED AND BED ALARM IN PLACE.
[2023-09-07 19:22] VITALS: BP 142/87
[2023-09-08 04:54] VITALS: BP 151/106
[2023-09-08 05:34] LABS: BASOPHILS ABSOLUTE AUTO 0.03 K/mm3 (0.00-0.23); BASOPHILS PERCENT AUTO 0 % (0-2); EOSINOPHILS PERCENT AUTO 1 % (0-6); Hematocrit 43.4 % (37.0-53.0); Hemoglobin 14.6 g/dL (13.5-17.5); IMMATURE GRAN ABSOLUTE AUTO 0.03 K/mm3 (0.00-0.10); IMMATURE GRAN PERCENT AUTO 0 % (0-1); LYMPHOCYTES ABSOLUTE AUTO 2.03 K/mm3 (0.84-5.20); LYMPHOCYTES PERCENT AUTO 20 % (21-46); MONOCYTES ABSOLUTE AUTO 0.76 K/mm3 (0.16-1.47); MONOCYTES PERCENT AUTO 8 % (4-13); Mean Corpuscular HGB 30.1 pg (26.0-34.0); Mean Corpuscular HGB Conc 33.6 g/dL (31.5-36.5); Mean Corpuscular Volume 90 fL (80-100); Mean Platelet Volume 10.9 fL (9.1-12.4); NEUTROPHILS ABSOLUTE AUTO 7.16 K/mm3 (1.96-9.15); NEUTROPHILS PERCENT AUTO 71 % (41-73); Platelet Count 187 K/mm3 (150-400); RDW Coefficient Variation 13.2 % (11.7-14.2); RDW Standard Deviation 43.6 fL (35.1-46.3); Red Blood Cell Count 4.85 M/mm3 (4.30-5.90); White Blood Cell Count 10.11 K/mm3 (4.00-11.30)
[2023-09-08 05:49] LABS: Bun/Creatinine Ratio 23.1 (12.0-20.0); Calcium, Blood 8.1 mg/dL (8.5-10.1); Creatinine, Blood 0.87 mg/dL (0.60-1.20); Potassium, Blood 3.8 mmol/L (3.5-5.5)
[2023-09-08 07:26] VITALS: BP 168/99
[2023-09-08 10:47] LABS: Influenza A, PCR NEGATIVE (NEGATIVE); Influenza B, PCR NEGATIVE (NEGATIVE); Resp Syncytial Virus, PCR NEGATIVE (NEGATIVE); SARS-Cov-2 (COVID-19) PCR, MMC NEGATIVE (NEGATIVE)
[2023-09-08] MEDS ORDERED: LOSA25 PO (12:22)
[2023-09-08] MEDS ORDERED: ATOR40TA PO (12:22)
[2023-09-08 16:00] VITALS: BP 116/65
[2023-09-08 19:40] VITALS: BP 134/82
--- NOTE | 2023-09-09 02:46 | NUR ---
SHIFT SUMMARY PT INCONTINENT MAJORITY OF NIGHT, WILL OCCASIONALLY USE URINAL WITH ASSISTANCE. ATTENDS CHANGED PRN. BEDDING CHANGED PRN SOILAGE. HAS A CONGESTED COUGH IN THROAT, SAT PATIENT UP, HAD HIM TAKE A COUPLE SIPS OF WATER AND WAS ABLE TO COUGH UP A MOD AMOUNT OF PHLEGM. HOB ELEVATED. BED ALARM ON. LEFT SIDE DEFICITS, HOWEVER ABLE TO TURN INDEPENDENTLY IN BED.
[2023-09-09 02:52] VITALS: BP 157/89
[2023-09-09 07:08] VITALS: BP 144/87
--- NOTE | 2023-09-09 12:37 | NUR ---
SHIFT NOTE: PATIENT A/O TO SELF AND PLACED, CONFUSED TO DATES, AND CURRENT SITUATION. PATIENT HAD COG EVAL 11/06. PATIENT SUPPOSED TO DISCHARGE TODAY TO SNF AT [facility] PASS AND RIDES WAS ALREADY ARRANGED BY CLIENT RELATIONSHIP MANAGER-PAKO EXPECTED CUSTOMIZER AT 1100. PATIENT WAS VERY UPSET AND REFUSED TO SNF DISCHARGE. PAKO CLIENT RELATIONSHIP MANAGER AND PAPI TAYLOR RN NOTIFIED c PATIENT REFUSAL. PATIENT ON MD HOLD c PSYCHIATRY EVAL. PATIENT HAS 1:1 SITTER IN ROOM. PATIENT HAS GOOD APPETITE, INCONTINENT OF BOWEL/BLADDER, ATTENDS PLACED AND CHANGED PRN. NO IV ACCESS PER ORDER. PATIENT WILL BE TRANSFERRED TO ROOM 347, REPORTS GIVEN TO GERARDO THOMSON. PATIENT LEFT THE ROOM AT 1245.
--- NOTE | 2023-09-09 13:38 | NUR ---
CONSULT NOTE: PSYCHIATRY CONSULT CALLED IN AT [address] ARROYO REGARDING CONSULT FOR COG/GUARDIAN EVAL REQUESTED BY DR. AUSTIN. PER DR. ARROYO "I DON'T DO COMPETENCY EXAM FOR INPATIENT. I CAN ONLY DO MEDS MANAGEMENT, LET DR. AUSTIN KNOW THAT HE NEEDS TO DO IT. OTHERWISE, DR. LUCAS WILL BE AVAILABLE ON OCT 23, 2023." CHARGED RN, PAPI TAYLOR NOTIFIED c THIS ISSUE. PER PAPI SHE WILL NOTIFIED DR. AUSTIN.
[2023-09-09 16:46] VITALS: BP 123/71
--- NOTE | 2023-09-09 19:32 | NUR ---
SHIFT SUMMARY PATIENT ALERT AND INTERACTIVE. PATIENT EASILY IRRITABLE WHEN TALK ABOUT REHAB. PATIENT WANTS TO GO HOME BUT LIVES ALONE AND CAN'T AMBULATE INDEPENDENTLY BECAUSE OF HIGH FALL RISK. PATIENT CONTINUES TO WANT TO GO HOME. NO FAMILY AVAILABLE. PATIENT PLACED ON 2MD HOLD AND TRANSFERED TO SCU WITH SITTER. PATIENT COOPERATIVE WITH STAFF AND NEEDING 2 PERSON ASSIST WITH GATE BELT.
[2023-09-09 20:00] VITALS: BP 119/84
[2023-09-10 03:35] VITALS: BP 133/71
[2023-09-10 07:19] VITALS: BP 121/79
--- NOTE | 2023-09-10 15:59 | NUR ---
RECEIVED CALL FROM DR PARKER WHO REQUESTED CONSULT TO BE PLACED TO [facility] FOR CAPCITY CONSULT AND FURTHER EVALUATION AND COURT HEARING. CONSULT PLACED BUT CALL NOT MADE, [facility] IS NOT LABORATORY CHEMIST THIS WEEKEND AND WILL NEED TO BE CALLED TUESDAY.
--- NOTE | 2023-09-10 16:06 | NUR ---
COMMITAL SCENIC DESIGNER (NARESH) IN TO SEE PATIENT.
[2023-09-10 16:19] VITALS: BP 123/70
--- NOTE | 2023-09-10 18:31 | NUR ---
SHIFT SUMMARY PATIENT STILL REQUIRING 1:1 STAFF FOR IMPULSIVE BEHAVIORS AND SAFETY CONCERNS. A FEW EPISODES OF SELF TRANSFER, DESPITE ATTEMPTED VERBAL REDIRECTION BY SITTER. COOPERATIVE WITH CARES, ACCEPTING OF MEDICATIONS. MIXED CONTINENCE EPISODES. SLEEPING MOST OF SHIFT EXCEPT FOR MEALS. CALL LIGHT IN REACH, CARES ONGOING.
[2023-09-10 19:26] VITALS: BP 110/72
[2023-09-11 02:23] VITALS: BP 144/90
--- NOTE | 2023-09-11 05:24 | NUR ---
SHIFT SUMMARY: Pt is admitted for failure to thrive and is a DNR. is alert and able to make needs known. ADLs have been a mix of 1-2 depending on activity. Denies pain or discomfort when asked. Has had a 1:1 due to 2 md hold.
[2023-09-11 06:18] LABS: BASOPHILS ABSOLUTE AUTO 0.04 K/mm3 (0.00-0.23); BASOPHILS PERCENT AUTO 0 % (0-2); EOSINOPHILS PERCENT AUTO 1 % (0-6); Hematocrit 41.7 % (37.0-53.0); Hemoglobin 13.7 g/dL (13.5-17.5); IMMATURE GRAN ABSOLUTE AUTO 0.07 K/mm3 (0.00-0.10); IMMATURE GRAN PERCENT AUTO 1 % (0-1); LYMPHOCYTES ABSOLUTE AUTO 2.32 K/mm3 (0.84-5.20); LYMPHOCYTES PERCENT AUTO 20 % (21-46); MONOCYTES ABSOLUTE AUTO 0.96 K/mm3 (0.16-1.47); MONOCYTES PERCENT AUTO 8 % (4-13); Mean Corpuscular HGB 29.7 pg (26.0-34.0); Mean Corpuscular HGB Conc 32.9 g/dL (31.5-36.5); Mean Corpuscular Volume 90 fL (80-100); Mean Platelet Volume 11.1 fL (9.1-12.4); NEUTROPHILS ABSOLUTE AUTO 8.24 K/mm3 (1.96-9.15); NEUTROPHILS PERCENT AUTO 70 % (41-73); Platelet Count 185 K/mm3 (150-400); RDW Coefficient Variation 13.5 % (11.7-14.2); RDW Standard Deviation 45.1 fL (35.1-46.3); Red Blood Cell Count 4.62 M/mm3 (4.30-5.90); White Blood Cell Count 11.73 K/mm3 (4.00-11.30)
[2023-09-11 06:41] LABS: Albumin, Blood 2.8 g/dL (3.4-5.0); Bilirubin, Total 0.7 mg/dL (0.1-1.0); Bun/Creatinine Ratio 32.6 (12.0-20.0); Calcium, Blood 8.3 mg/dL (8.5-10.1); Creatinine, Blood 0.8 mg/dL (0.60-1.20); Globulin, Blood 2.8 g/dL (2.2-4.0); Potassium, Blood 3.7 mmol/L (3.5-5.5); Total Protein, Blood 5.6 g/dL (6.4-8.2)
[2023-09-11 07:22] VITALS: BP 145/81
--- NOTE | 2023-09-11 12:33 | NUR ---
DOWNGRADED DIET TEXTURE TO SOFT AND BITE SIZE, PATIENT DOESN'T HAVE DENTURES AND IS HAVING A HARD TIME WITH SOME OF THE TEXTURES THIS SHIFT.
[2023-09-11 15:39] VITALS: BP 115/75
--- NOTE | 2023-09-11 16:36 | NUR ---
SHIFT SUMMARY PATIENT IN BED MOST OF THE SHIFT. SELF TRANSFERRING, VERBALIZING THE NEED TO BE SAFE AND PREVENT FALL, BUT CONTINUED TO SELF TRANSFER. MIXED CONTINENCE THIS SHIFT. FRIENDS, SABINA AND YANET IN TO VISIT THIS SHIFT. CALL LIGHT IN REACH, CARES ONGOING
[2023-09-11 19:36] VITALS: BP 117/62
[2023-09-12 03:46] VITALS: BP 136/89
--- NOTE | 2023-09-12 04:38 | NUR ---
SHIFT SUMMARY: Pt is admitted for failure to thrive and is a DNR. is alert and able to make needs known. ADLs have been a mix of 1-2 depending on activity. Stated that he did have some pain to his legs this shift but when offered pain management he declined. Has had a 1:1 due to 2 md hold.
[2023-09-12 07:14] VITALS: BP 142/86
--- NOTE | 2023-09-12 12:50 | NUR ---
Aid to capacity evaluation administered. 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 His affect was flat and variations in tone and animation, were extremely limited throughout the duration of the assessment. He verified his name correctly, knew that he was hospitalized, and attributed his present set of conditions to a stroke episode. He had no recollection of declining skilled rehabilitation services, no active memories of discharge conversations, and did not recall any provider involvement, but could remember a physical therapy visit. The PT activity transpired roughly an hour prior to my arrival. He did not demonstrate an appreciable or coherent understanding of his most pressing medical issue, and was entirely unable to articulate, or re-iterate what treatment strategies, or discharge options have been proposed as part of his recovery plan. These factors in combination, along with my previous findings, strongly indicate that the principal lacks sufficient capacity for clinical decision making. I would recommend that we pursue a court appointed fiduciary resource to ensure a safe disposition. Thank you for this consult. Javier Pearce, PhD, CYNTHIA
[2023-09-12 15:06] VITALS: BP 123/79
--- NOTE | 2023-09-12 16:59 | NUR ---
SHIFT SUMMARY PT AOX3-4, SLEPT MOST OF THE DAY. UP TO THE CHAIR FOR BREAKFAST. 1-2 ASSIST TO THE CHAIR/BED. USES THE URINAL WITH ASSISTANCE. NO COMPLAINTS OF CP/PRESSURE/N/V/D/PAIN. DOES NOT CALL OFTEN. 1:1 SITTER FOR THE 2 MD HOLD. BA ON. PT REPOSITIONS HIMSELF IN BED. CALL LIGHT WITHIN REACH, BED LOCKED AND IN THE LOWEST POSITION. WILL REPORT TO ONCOMING NURSE.
[2023-09-12 19:10] VITALS: BP 126/73
[2023-09-13 03:57] VITALS: BP 157/96
--- NOTE | 2023-09-13 05:41 | NUR ---
SUMMARY: PT A/O X2-3 BUT IS FORGETFUL AND IMPULSIVE AT TIMES. BED ALARM ON AND 2MD HOLD W/1:1 SITTER IS IN PROGRESS. HE'S UP W/2PA AND HEMIWALKER D/T L.SIDE WEAKNESS. URINAL ASSIST PROVIDED AND ATTENDS CHANGED PRN FOR INCONTINENCE. VSS/AFEBRILE AND NO ACUTE CHANGES. GUARDIANSHIP AND PLACEMENT PENDING. WCTM AND REPORT TO DAY RN.
[2023-09-13 07:08] VITALS: BP 179/96
[2023-09-13 10:42] VITALS: BP 138/90
[2023-09-13 15:43] VITALS: BP 147/92
--- NOTE | 2023-09-13 16:55 | NUR ---
SHIFT SUMMARY PT AOX3, ORIENTED TO SELF, PERSON, AND PLACE. 1-2 ASSIST TO THE CHAIR, ASSISTANCE WITH THE URINAL IS NEEDED. HE DOES NOT CALL, HE BEGINS TO STIR AND APPEAR TO BE ATTEMPTING TO GET OUT OF BED. BA IS ON. 1:1 SITTER FOR THE 2 MD HOLD. PT HAS A HEALTHY APPETITE. BRIEF IN PLACE AND CHANGED NEEDED. REPOSITIONED IN BED INDEPENDENTLY. CALL LIGHT WITHIN REACH, BED LOCKED AND IN THE LOWEST POSITION. WILL REPORT TO ONCOMING NURSE.
[2023-09-13 19:55] VITALS: BP 114/85
[2023-09-14 02:46] VITALS: BP 134/74
--- NOTE | 2023-09-14 05:58 | NUR ---
COMMERCIAL TRUCK DRIVER PATIENT IS A&O TO SELF, CONFUSED, VITALS ARE STABLE, ON ROOM AIR, NOT ON TELE. VEST RESTRINT WAS ORDERED BECAUSE PATIENT WAS CONFUSED AND TRIED GOING INTO OTHER PATIENTS ROOM AND TRIED GETTING OFF THE UNIT, PATIENT HALLUCINATEES AT TIMES. PATIENT IS TOLERATING RESTRAINT WELL, WAS ABLE TO SLEEP.
--- NOTE | 2023-09-14 06:13 | NUR ---
TANK INSPECTOR PATIENT IS A&OX3, CONFUSED, EASILY ANGER, VERBALLY AGGRESIVE TOWARDS STAFF, VITALS ARE STABLE, ON ROOM AIR, NOT ON TELE, HAS A 1:1 SITTER BECAUSE HE IS ON A MEDICAL HOLD DUE PHYSIC PROBLEMS. PATIENT HAS LEFT SIDED DEFICIT DUE TO POSSIBLE STROKE WHICH MAKES IT DIFFICULT FOR PATIENT TO AMBULATE. PT IS VERY WEAK WHEN TRYING TO GET UP AND IS AT A FALL RISK, PT OVERESTIMATE OWN ABILITIES AND GETS ANGRY AT STAFF WHEN INSTRUCTED TO GET ASSISTANCE WITH MOBILITY IN ORDER TO PREVENT A FALL. PATIENT CURRENTLY TRANSFER WITH 1-2 ASSISST WITH A GAIT BELT AND A WALKER. PATIENT USES URINAL AT BEDSIDE BUT AHAS BEEN INCONTINENT THROUGHTOUT SHIFT DUE TO DIFFICULT TRANSFERING FROM BED TO BEDSIDE TOILET. PATIENT NEEDS MORE REINFORCEMENTT
[2023-09-14 07:31] VITALS: BP 156/109
--- NOTE | 2023-09-14 11:25 | NUR ---
PATEINT COOPERATIVE THIS AM, 1:1, PLEASANT, WORKED WITH OT, BED/CHAIR ALARM ON, CALL LIGHT WITH IN REACH
[2023-09-14 15:31] VITALS: BP 140/95
--- NOTE | 2023-09-14 15:35 | NUR ---
TIFFANIE PHILLIP PRECOMMITMENT TYRE RETREADER [phone] CALLED TO CHECK ON PATIENTS 2 MD HOLD, SHE REPORTED THE HOLD EXPIRES 09/16/23 AT 1700, WILL RELAY TO ODD TICKET CLERK
--- NOTE | 2023-09-14 18:39 | NUR ---
NO CHNAGES, EXTRA LARGE BM, GOOD APPETITE, EASILY CONFUSED AND BECOMES DEFENSIVE, MAKES NEEDS KNOWN BY BECOMING RESTLESS IN THE ROOM, 1:1 AT BEDSIDE, PATIENT DENIED PAIN, 2 MD HOLD EXPIRES 09/16/23 PER ADAPT TIFFANIE PHILLIP. CALL LIGHT WITH IN REACH, 2 PERSON ASSIST TO BSC, WILL RELAY TO PM RN
[2023-09-14 20:09] VITALS: BP 117/69
[2023-09-15 04:19] VITALS: BP 128/78
--- NOTE | 2023-09-15 04:47 | NUR ---
SHIFT SUMMARY PATIENT HAD NO ACUTE CHANGES. AXOX 2 WITH CONFUSION. TWO MD HOLD WITH SITTER 1:1. TWO ASSIST FWW/GB TO BSC. LS WEAKNESS. NO IV ACCESS. DENIES CHEST PAIN, SOB, AND N/V. VSS/AFEBERILE. SLEPT MOST OF THE SHIFT. CALL LIGHT IN REACH. BED IN LOWEST POSITION. WILL CONTINUE TO MONITOR UNTIL DAY SHIFT NURSE ASSUMES CARE.
[2023-09-15 07:32] VITALS: BP 149/104
--- NOTE | 2023-09-15 12:15 | NUR ---
PT IN WORKING WITH PATIENT NOW
[2023-09-15 15:46] VITALS: BP 135/90
--- NOTE | 2023-09-15 16:46 | NUR ---
NO ACUTE CHANGES, WAITING FOR GUARDIANSHIP TO BE ESTABLISHED, 2 MD HOLD EXPIRES 09/16/23 AT 1700, DR KATZ AWARE, COOPERATIVE TO CARE TODAY, WORKED WITH PT, OOB IN CHAIR FOR LUNCH, 2 PA FOR TRANSFERS, CALL LIGHT WITH IN REACH, 1:1 AT BEDSIDE, WILL RELAY TO PM RN
[2023-09-15 19:36] VITALS: BP 125/69
[2023-09-16 03:47] VITALS: BP 135/67
--- NOTE | 2023-09-16 06:17 | NUR ---
Pt oriented to self. Pleasant during interactions. Continues being conused - urinated on floor.
[2023-09-16 07:50] VITALS: BP 132/70
[2023-09-16 14:52] VITALS: BP 114/67
--- NOTE | 2023-09-16 17:53 | NUR ---
NO ACUTE CHANGES, OOB IN CHAIR FOR AWHILE, MAKES NEEDS KNOWN, CONTINENT/INCONTINENT, WAITING FOR GUARDIANSHIP FOR PLACEMENT, 2 MD HOLD TODAY AT 1700, CALL LIGHT WITH IN REACH, 1:1, WILL RELAY TO PM GERARDO
[2023-09-16 19:04] VITALS: BP 128/70
[2023-09-16 19:41] VITALS: BP 107/75
[2023-09-17 02:57] VITALS: BP 124/80
--- NOTE | 2023-09-17 06:15 | NUR ---
SHIFT SUMMARY PATIENT APPEARED TO SLEEP ON AND OFF THROUGH THE NIGHT. HE DENIED HAVING PAIN. IS ABLE TO MAKE HIS NEEDS KNOWN. RECEPTIVE TO CARE. BED IN LOW POSITION, CALL LIGHT WITH IN REACH, RAILS TIMES 2.
[2023-09-17 15:53] VITALS: BP 118/67
--- NOTE | 2023-09-17 17:06 | NUR ---
SHIFT SUMMARY MR HOLMAN IS ORIENTATED TO SELF AND TO ORANGE. HE SAID THAT HE WAS IN A DIFFERENT HOSPITAL. HE GOT ANNOYED WHEN I ASKED HIM TO TELL ME THE DATE AND SAID THAT HE DIDN'T WANT TO ANSWER ANY FURTHER QUESTIONS. UNSTEADY 2 PERSON TRANSFER TO THE BEDSIDE COMMODE, MOSTLY INCONTINENT OF URINE AND STOOL. 2 LARGE SOFT UNFORMED BROWN STOOLS. HE DOES NOT WANT TO PARTICIPATE IN MANY ASPECTS OF HIS CARE, BUT WILL ALLOW STAFF TO CLEANSE HIM AFTER HE IS INCONTINENT. GOOD APPETITE. HE HAS NOT COMPLAINED OF ANY PAIN, BUT DECLINES TO ANSWER ME WHEN ASKED IF HE HAS DISCOMFORT. APART FROM GETTING UP TO URINATE ON THE FLOOR THIS MORNING HE HAS NOT ATTEMPTED TO GET UP OUT OF BED. BED LOW, CALL LIGHT IN REACH. BED ALARM ON.
[2023-09-17 19:52] VITALS: BP 131/83
[2023-09-18 03:38] VITALS: BP 93/55
[2023-09-18 03:40] VITALS: BP 141/71
--- NOTE | 2023-09-18 06:29 | NUR ---
SHIFT SUMMARY PATIENT APPEARED TO SLEEP ON AND OFF FROM 2000 TO 0600. SHIFT ASSESSMENT ATEMPTED. PATIENT DENIED PAIN OR NEEDING ANYTHING. PATIENT WAS INCONTINENT ONCE. ASSISTED TO BEDSIDE COMODE. PATIENT WAS CLEANED, BED CHANGED, AND MADE COMFORTABLE. PATIENT ASKED FOR TURKEY SANDWICH, AND ICEWATER. PATIENT THANKED STAFF FOR TENDING TO HIM. HE WAS ASKED IF STAFF COULD PLEASE ATTACH DNR BAND BACK TO WRIST. TO WHICH HE DECLINED. WILL ATTEMPT AGAIN IN AM. BED IN LOW POSITION, RAILS TIMES 2, CALL LIGHT WITHIN REACH.
[2023-09-18 07:21] VITALS: BP 133/70
[2023-09-18 15:27] VITALS: BP 124/81
--- NOTE | 2023-09-18 16:23 | NUR ---
SHIFT SUMMARY MR HOLMAN IS ORIENTATED TO HIS NAME AND TO [facility], NOT TO [facility]. HE IS CONFUSED AND FORGETFUL. 2 PERSON ASSIST UP TO THE RECLINER TODAY. GOOD APPETITE. INCONTINENT OF TWO LARGE UNFORMED BROWN STOOLS AND MOSTLY INCONTINENT OF URINE. MR HOLMAN HAS VERBALISED LESS IRRITATON WITH STAFF AND HIS CARE TODAY THAN YESTERDAY. NOW BACK IN BED, REPOSITIONING WELL WITH ASSISTANCE AND SOMETIMES INDEPENDENTLY AT LEAST Q2HRS. BED LOW, CALL LIGHT IN REACH. BED ALARM ON.
[2023-09-18 19:44] VITALS: BP 148/85
--- NOTE | 2023-09-19 06:15 | NUR ---
SHIFT SUMMARY PATIENT INCONTINENT BUT COOPERATIVE WITH STAFF. APPEARED TO SLEEP ON AND OFF THROUGH SHIFT. DENIES PAIN AND LIMITED ASSESSMENT CONDUCTED DUE TO PATIENT GETTING AGGITATED WITH QUESTIONS. PATIENT LATER IN NIGHT INCONTINENT BUT WITH ASSIST SAT IN CHAIR WHILE STAFF CHANGED AND CLEANED BED. BED IN LOW POSITION CALL LIGHT WITHIN REACH, RAILS TIMES 2.
[2023-09-19 07:27] VITALS: BP 149/92
[2023-09-19 15:34] VITALS: BP 151/90
--- NOTE | 2023-09-19 18:08 | NUR ---
SHIFT SUMMARY PATIENT A/OX2 THIS SHIFT, ABLE TO MAKE NEEDS KNOWN. PATIENT PLEASANT, COOPERATIVE, BUT WITHDRAWN. INCONTINENT OF BOWEL AND BLADDER. SUPERVISOR ELECTRONICS ASSEMBLY FROM [employer] HEARING ASSESSED PATIENT IN ATTEMPT TO RETRIEVE INFORMATION REGARDING THE PATIENT'S CHILDREN. PATIENT UNABLE TO NAME 2 OF HIS CHILDREN, [employer] REP STATED SHE WOULD ATTEMPT TO CONTACT HIS MOTHER TO SEE IF SHE WOULD BE ABLE TO GIVE HER MORE INFORMATION. PATIENT DENIES PAIN TODAY. TRANSFERRED TO THE CHAIR FOR BREAKFAST. PATIENT WITH HEALTHY APPETITE, EATING ALL MEALS AND REQUESTING SNACKS THROUGHOUT THE SHIFT. NO OTHER CONCERNS AT THIS TIME.
[2023-09-19 19:30] VITALS: BP 116/72
[2023-09-20 03:22] VITALS: BP 136/88
--- NOTE | 2023-09-20 06:17 | NUR ---
FELLER HAND SUMMARY NO ACUTE CHANGES. PT A/OX2. ABLE TO MAKE NEEDS KNOWN WHEN PROMPTED/ASSESSED. PT BECOMES RESTLESS W/EPISODES OF INCONTINENCE. BED CHANGE X2 DUE TO HEAVY INCONT. PT COOPERATIVE WITH CARE. CALL LIGHT ACCESSIBLE. BED ALARM IN PLACE.
[2023-09-20 07:25] VITALS: BP 146/93
[2023-09-20 15:23] VITALS: BP 137/84
--- NOTE | 2023-09-20 18:33 | NUR ---
SHIFT SUMMARY PATIENT A/OX1, ABLE TO MAKE NEEDS KNOWN, PLEASANT AND COOPERATIVE WITH STAFF MEMBERS. DENIES PAIN THIS SHIFT. CONTINUES WITH GOOD APPETITE, EATING 100% OF ALL MEALS AND REQUESTING SNACKS. PATIENT INCONTINENT, ATTENDS IN PLACE. PARTICIPATED IN PHYSICAL THERAPY THIS AFTERNOON AND WAS ABLE TO WALK TO THE DOORWAY OF HIS ROOM AND BACK WITH A REST BREAK IN BETWEEN. PATIENT UP IN RECLINER AT THIS TIME, CHAIR ALARM IN PLACE. NO OTHER CONCERNS THIS SHIFT.
[2023-09-20 19:37] VITALS: BP 136/92
[2023-09-21 03:14] VITALS: BP 143/97
--- NOTE | 2023-09-21 06:13 | NUR ---
SHIFT SUMMARY 68 YR M ADMITTED ON 08/24/23. DNR. NO ACUTE CHANGES THIS SHIFT. PT IS PLEASANT AND COOPERATIVE WITH CARE. HOWEVER, AT TIMES HE URINATES ON THE BED BUT NOT IN HIS BRIEF. AT OTHER TIMES HE WILL ASK FOR ASSISTANCE. HE SITS UP TO BEDSIDE BUT HAS NOT ATTEMPTED TO GET OUT OF BED ON HIS OWN. WILL CONTINUE TO MONITOR. BED IN LOW POSITION AND CALL LIGHT IN REACH.
[2023-09-21 07:25] VITALS: BP 122/67
[2023-09-21 15:27] VITALS: BP 127/72
--- NOTE | 2023-09-21 17:36 | NUR ---
pt had uneventful day today no change in condition still confused with flat affect. assisted to chair with minimal assistance. pt able to make needs known
[2023-09-21 19:28] VITALS: BP 150/84
[2023-09-22 04:23] VITALS: BP 148/86
--- NOTE | 2023-09-22 05:53 | NUR ---
SHIFT SUMMARY 68 YR M ADMITTED ON 08/24/23. DNR. NO ACUTE CHANGES THIS SHIFT. PT REMAINS INCONTINENT BUT WILL CALL FOR ASSISTANCE WHEN WET OR SOILED. HE APPEARS TO HAVE RETSED COMFORTABLY FOR MOST OF THIS SHIFT. WILL CONTINUE TO MONITOR. BED IN LOW POSITION AND CALL LIGHT IN REACH.
[2023-09-22 07:12] VITALS: BP 135/89
[2023-09-22 16:15] VITALS: BP 154/75
--- NOTE | 2023-09-22 16:16 | NUR ---
SHIFT SUMMARY: PT IS A&OX2 AND 1-2 PERSON ASSIST. HE HAS BEEN PLEASANT AND COOPERATIVE WITH CARE. HE IS MAINLY INCONTINENT, EATING/DRINKING, AND MAKES HIS NEEDS KNOWN. HE IS IN HIS BEDSIDE RECLINER, CALL LIGHT WITHIN REACH, NO SIGNS OR SYMPTOMS OF DISTRESS, PLAN OF CARE ONGOING.
[2023-09-22 19:26] VITALS: BP 126/68
[2023-09-23 03:26] VITALS: BP 112/91
--- NOTE | 2023-09-23 04:40 | NUR ---
SHIFT SUMMARY 68 YR M ADMITTED ON 08/24/23. DNR. NO ACUTE CHANGES THIS SHIFT. PT HAS SLEPT FOR MOST OF THIS SHIFT AND HAS BEEN PLEASANT AND COOPERATIVE WITH CARE. WILL CONTINUE TO MONITOR. BED IN LOW POSITION AND CALL LIGHT IN REACH.
[2023-09-23 07:08] VITALS: BP 117/82
[2023-09-23 15:16] VITALS: BP 129/84
--- NOTE | 2023-09-23 18:06 | NUR ---
SHIFT SUMMARY: NO EVENTS OR CHANGES WITH THE PATIENT THROUGHOUT THE SHIFT. HE HAS BEEN HAVING MORE OF A COUGH TODAY WITH SOME PRODUCTION; DR. REGAN NOTIFIED. HE EVALUTED THE PATIENT; PATIENT REFUSES ANY CARE FOR HIS COUGH. PATIENT IS IN HIS BEDSIDE RECLINER, CALL LIGHT WITHIN REACH, CHAIR ALARM SET, HE HAS NOT TRIED GETTING UP WITHOUT ASSISTANCE, PLAN OF CARE ONGOING.
[2023-09-23 19:17] VITALS: BP 144/95
[2023-09-24 03:32] VITALS: BP 121/76
--- NOTE | 2023-09-24 06:21 | NUR ---
NO ACUTE CHANGES DURING SHIFT. VSS. A&OX2. PLEASANT INTERACTIONS WITH PT. FOLLOWS INSTRUCTIONS BUT FORGETFUL. INCONTINENT URINATION, LINEN CHANGE PERFORMED.
[2023-09-24 07:02] VITALS: BP 138/88
[2023-09-24 16:33] VITALS: BP 133/91
--- NOTE | 2023-09-24 16:49 | NUR ---
SHIFT SUMMARY: NO EVENTS OR CHANGES WITH THE PATIENT THROUGHOUT THE SHIFT. HE CONTINUES TO BE INCONTINENT REGUARDLESS OF ACKNOWLEDGEMENT/ATTEMPTS OF USE OF URINAL. PATIENT WAS AGREEABLE TO USE A CONDOM CATH. HE HAS BEEN MORE IMPULISIVE TODAY; GETTING UP WITHOUT CALLING. HE IS CURRENTLY IN BED, CALL LIGHT WITHIN REACH, BED ALARM SET, NO SIGNS OR SYMPTOMS OF DISTRESS, PLAN OF CARE ONGOING.
[2023-09-24 20:32] VITALS: BP 142/85
[2023-09-25 03:25] VITALS: BP 117/81
--- NOTE | 2023-09-25 06:32 | NUR ---
NO ACUTE CHANGES DURING SHIFT. A&OX2. CALM AND COOPERATIVE. SLEPT MOST OF SHIFT.
[2023-09-25 07:01] VITALS: BP 117/83
[2023-09-25 15:54] VITALS: BP 155/97
--- NOTE | 2023-09-25 16:23 | NUR ---
NO ACUTE CHANGES AT THIS TIME. PT IS AOX2 AND COOPERATIVE OF CARE. PT RESTING IN BED WITH BED ALARM IN PLACE. BED ALARM IS IN PLACE WILL CONTINUE TO MONITOR.
[2023-09-25 19:47] VITALS: BP 138/93
[2023-09-26 05:52] VITALS: BP 131/93
--- NOTE | 2023-09-26 05:59 | NUR ---
NO ACUTE CHANGES DURING SHIFT. VSS. PLEASANT DURING INTERACTIONS. OCCASIONALLY HEARD GROANING TONIGHT, WHEN ASKED IF HE IS HURTING HE DENIES AND STATES EVERYTHING IS FINE.
[2023-09-26 06:59] VITALS: BP 113/68
[2023-09-26 17:03] VITALS: BP 106/61
--- NOTE | 2023-09-26 18:07 | NUR ---
DAY SHIFT SUMMARY: A&Ox2-3. PLEASANT AND COOPERATIVE WITH CARE. DOES NOT USE CALL LIGHT FOR ASSISTANCE. LARGE BM FOLLOWED BY COMPLETE BED BATH AND BED CHANGE TODAY. WORKED WITH PT/OT TODAY AND WALKED IN STOUT WITH PT ASSIST, WALKER AND GAIT BELT. NO ACUTE CONCERNS T/O SHIFT. MEDS WHOLE WITH FLUIDS, ATE ALMOST ENTIRETY OF ALL MEALS. VSS. NO IV ACCESS. BED IN LOWEST POSITION, CALL LIGHT WITHIN REACH. REPORT TO BE GIVEN TO ONCOMING NURSE.
[2023-09-26 19:11] VITALS: BP 117/68
[2023-09-27 04:39] VITALS: BP 116/87
[2023-09-27 07:13] VITALS: BP 116/68
--- NOTE | 2023-09-27 07:21 | NUR ---
SHIFT SUMMARY PT IS A&OX2, COOPERATIVE WITH CARES. HAS WORD SALAD AT TIMES, AND MUMBLES. VSS ON RA. HAS LEFT SIDED EXTREMETY DEFICITS. DENIES PAIN. TOLERATING A SOFT AND BITE SIZE DIET, TAKES PILLS WHOLE WITH FLUIDS. X1 ASSIST WITH FWW TO BSC. WAS UNABLE TO VOID, BLADDER SCAN WAS 180. NO BM THIS SHIFT, NEEDS BOWEL CARE ORDERED. BRIEF IN PLACE. BED IN LOWEST POSITION, CALL LIGHT WITHIN REACH. KELLY DOES NOT USE CALL LIGHT APPROPRIATELY, BED ALARM SET FOR PT'S SAFETY.
--- NOTE | 2023-09-27 09:00 | NUR ---
pt laying in bed wakes easily, did tell this nurse he's in the hosp, a/ox3, cooperative with care, follows commmands well, denies pain, lungs are dim t/o, but not really taking deep breaths, on r/a, resp even and unlabored, no cough noted, hrr, no edema noted, ppp+1, cap refill<3 sec, vs stable, afebrile, iv site is clear and patent, btx4, abd flat soft nontender, incont of urine, skin c/w/d, agueda alvarez call light in reach.
[2023-09-27 15:44] VITALS: BP 138/92
--- NOTE | 2023-09-27 18:16 | NUR ---
pt had an uneventful shift, no needs or complaints, has been up to the chair for meals, no acute changes this shift. call light in reach.
[2023-09-27 19:30] VITALS: BP 141/91
[2023-09-28 03:18] VITALS: BP 128/92
[2023-09-28 07:36] VITALS: BP 136/92
--- NOTE | 2023-09-28 07:57 | NUR ---
SHIFT SUMMARY PT IS A&OX2, COOPERATIVE WITH CARES. HAS WORD SALAD AT TIMES, AND MUMBLES. VSS ON RA. HAS LEFT SIDED EXTREMETY DEFICITS. DENIES PAIN. TOLERATING A SOFT AND BITE SIZE DIET, TAKES PILLS WHOLE WITH FLUIDS. X1 ASSIST WITH FWW TO BSC. PT WAS SITTING IN CHAIR, HE JUST THEN PRECEDED TO URINATE ALL OVER THE FLOOR. NO BM THIS SHIFT. BRIEF IN PLACE. BED IN LOWEST POSITION, CALL LIGHT WITHIN REACH. KELLY DOES NOT USE CALL LIGHT APPROPRIATELY, BED ALARM SET FOR PT'S SAFETY.
--- NOTE | 2023-09-28 19:54 | NUR ---
SUMMARY- PT A/O X2-3, KNOWS HE'S IN THE HOSPITAL IN [place]. DOES NOT KNOW DETAILS OF DATE ETC. PT HAS BEEN CONTINENT ALL DAY, TELLING STAFF WHEN THEY ENTER THAT HE HAS TO USE THE URINAL, STAFF ASSIST TO HOLD URINAL WHILE HE STANDS UP. PT GOT UP TO THE CHAIR MULT TIMES TODAY WITH SBA, GAIT/WALKER. ADQ STRENGTH, OCC MIS STEP, MILDLY UNSTEADY AT TIMES. TOLERATING FOOD AND FLUID. OBTAINED GA[employer]DI[employer]SHIP TODAY, WORKING ON PLACEMENT. SKIN INTACT, NO RASH OR SORES ON BACKSIDE. SKIN COMPLETELY INTACT. WILL REPORT TO NOC RN
[2023-09-28 20:36] VITALS: BP 142/90
[2023-09-29 05:34] VITALS: BP 122/96
--- NOTE | 2023-09-29 06:54 | NUR ---
END OF SHIFT SUMMARY NO ACUTE CHANGES DURING NIGHT. PT A&OX3-4, SOMETIMES FORGETTING TO CALL FOR ASSIST BUT EASILY REDIRECTABLE. MIXED CONTINENCE, YARELI CARE COMPLETED NEEDED.
[2023-09-29 07:47] VITALS: BP 131/90
[2023-09-29 15:11] VITALS: BP 131/81
--- NOTE | 2023-09-29 17:04 | NUR ---
DISCUSSED CASE WITH PROVIDER AND GEAR TOOTH LAPPING MACHINE OPERATOR. ROUNDED ON KELLY THIS SHIFT AND HE WAS WITH THE RN AT THE TIME. REVIEWED MOST RECENT CHART NOTES AND MEDICAITONS. PC WILL REMAIN AVALIABLE.
--- NOTE | 2023-09-29 18:37 | NUR ---
SUMMARY- PT A/O X3, MILD CONFUSION AND FORGETFULNESS. PT REFUSED GUARDIAN TODAY AND NOW HAS TO HAV A COURT HEARING. SEE SOCIAL SERVICE NOTES. PT TOLERATING FOOD AND FLUIDS. USED URINAL, CONTINENT ALL DAY. SAT IN CHAIR ALL DAY. SET OFF CHAIR ALARM ONCE TO STAND UP TO GO TO THE BATHROOM, STAFF HELPED PT IN TIME. PT HAS ADQ STRENGTH BUT UNSTEADY GAIT. CONT WITH MILD L WEAKNESS.
--- NOTE | 2023-09-29 18:40 | NUR ---
SUMMARY- PT A/O X4, BEDREST, TURNED Q2. PT FEEDS SELF, TOLERATING FOOD AND FLUID. PT HAS PAIN IN LEGS AND FEET, MEDICATED ONCE WITH OXYCODONE WITH GOOD RELEIF. HEPARIN GTT STOPPED THIS PM, STARTING LOVENOX AND CONT WITH COUMADIN. USING MALE PUREWICK. HAS SKIN SPLITS BILAT GROIN, USING ZINC CREAM. HAS BEEN ON ROOM AIR SINCE ABOUT 10AM, SATS 97% ROOM AIR. 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 DIURESING PT, HARD TO DOC I/O WITH A FEW INCONT EPISODES. WILL REPORT TO NOC RN
[2023-09-29 20:03] VITALS: BP 142/98
[2023-09-30 03:02] VITALS: BP 134/83
--- NOTE | 2023-09-30 06:32 | NUR ---
PATIENT IS A&OX2-3, CONFUSED AT TIMES AND FORGETFUL. PATIENT TRIES GETTING OUT OF BED WITHOUT CALLING FOR HELP, BED ALARM IS ON AND CALL LIGHT IS IN REACH. VITALS ARE STABLE, ON ROOM AIR, NO TELE. INCONTINENT THROUHOUT THE NIGHT. PLAN: STILL WAITING FOR GUARDIANSHIP TO BE PUT IN PLACE BEFORE D/C.
[2023-09-30 07:44] VITALS: BP 128/63
[2023-09-30 14:45] VITALS: BP 104/62
--- NOTE | 2023-09-30 18:16 | NUR ---
VSS, confused at times, A-Ox3 disoriented to time, ambulates with 1x assist and walker, deines any pain, denies SOB, on RA. Lungs diminished, heart regular, bowel sounds normative, has L-side weakness, ambulates to bathroom some times contientent, brief changed frequently. Pt can make some needs known, call wu in hand, bed in lowest position.
[2023-09-30 19:54] VITALS: BP 133/73
--- NOTE | 2023-10-01 04:15 | NUR ---
ELECTRICAL ESTIMATOR PATIENT IS A&OX3, FORGETFUL, OVERESTIMATE HIS LIMITATION AND IMPULSIVE AT TIMES. PATIENT IS EASILY IRRITATED WHEN STAFF TRIES ASSISTING HIM WITH HIS PATHROOM NEEDS.PATIENT TRIES GETTING OUT OF BED WITHOUT CALLING FOR ASSISTANC. CALL LIGHT IS IN REACH, BED IN LOW POSITION AND BED ALARM IS ON PATIENT IS ON ROOM AIR, NO TELE, AND VITALS ARE STABLE.
[2023-10-01 04:48] VITALS: BP 115/81
[2023-10-01 07:34] VITALS: BP 135/78
[2023-10-01 15:14] VITALS: BP 100/59
--- NOTE | 2023-10-01 17:16 | NUR ---
VSS, Confused at times, A-Ox3 disoriented to situation, impulisive at times, denies SOB, denies any pain, ambulates with 1x assist with walker, baseline L-side weakness, on RA. Lungs diminished, heart regular, bowel sounds normative, incontent of urine at times, unsteady gait. Pt can make some needs known, call wu in hand, bed alarm on at all times.
[2023-10-01 19:14] VITALS: BP 135/82
[2023-10-02 04:24] VITALS: BP 107/68
[2023-10-02 07:20] VITALS: BP 120/85
[2023-10-02 15:38] VITALS: BP 130/79
--- NOTE | 2023-10-02 18:24 | NUR ---
VSS, denies SOB, denies any pain, Confused, A-Ox3 disoriented to time, ambulates with 1x assist and walker, baseline L-side weakness, on RA. Lungs diminished, heart regular, bowel sounds normative, incontentint of urine at times. Pt can make some needs known, call wu in hand, bed lowest position.
[2023-10-02 20:19] VITALS: BP 146/89
[2023-10-03 04:08] VITALS: BP 112/60
--- NOTE | 2023-10-03 05:41 | NUR ---
Patient alert and oriented to self and "in the hospital" overnight. Patient resting in bed, tolerating room air appropriately. Attend briefs in place r/t patient incontinent of bowel and bladder.
[2023-10-03 07:43] VITALS: BP 148/91
[2023-10-03 08:35] LABS: BASOPHILS ABSOLUTE AUTO 0.04 K/mm3 (0.00-0.23); BASOPHILS PERCENT AUTO 0 % (0-2); EOSINOPHILS ABSOLUTE AUTO 0.11 K/mm3 (0.00-0.68); EOSINOPHILS PERCENT AUTO 1 % (0-6); Hematocrit 46.8 % (37.0-53.0); Hemoglobin 15.2 g/dL (13.5-17.5); IMMATURE GRAN ABSOLUTE AUTO 0.02 K/mm3 (0.00-0.10); IMMATURE GRAN PERCENT AUTO 0 % (0-1); LYMPHOCYTES ABSOLUTE AUTO 2.43 K/mm3 (0.84-5.20); LYMPHOCYTES PERCENT AUTO 27 % (21-46); MONOCYTES ABSOLUTE AUTO 0.56 K/mm3 (0.16-1.47); MONOCYTES PERCENT AUTO 6 % (4-13); Mean Corpuscular HGB 29.5 pg (26.0-34.0); Mean Corpuscular HGB Conc 32.5 g/dL (31.5-36.5); Mean Corpuscular Volume 91 fL (80-100); Mean Platelet Volume 10.8 fL (9.1-12.4); NEUTROPHILS ABSOLUTE AUTO 6.01 K/mm3 (1.96-9.15); NEUTROPHILS PERCENT AUTO 66 % (41-73); Platelet Count 214 K/mm3 (150-400); RDW Coefficient Variation 13.1 % (11.7-14.2); RDW Standard Deviation 43.8 fL (35.1-46.3); Red Blood Cell Count 5.16 M/mm3 (4.30-5.90); White Blood Cell Count 9.17 K/mm3 (4.00-11.30)
[2023-10-03 08:47] LABS: Albumin, Blood 3.1 g/dL (3.4-5.0); Albumin/Globulin Ratio 0.9 (0.8-1.8); Bilirubin, Total 1.1 mg/dL (0.1-1.0); Bun/Creatinine Ratio 18.5 (12.0-20.0); Calcium, Blood 8.7 mg/dL (8.5-10.1); Creatinine, Blood 0.92 mg/dL (0.60-1.20); Globulin, Blood 3.4 g/dL (2.2-4.0); Total Protein, Blood 6.5 g/dL (6.4-8.2)
[2023-10-03 14:58] VITALS: BP 116/80
--- NOTE | 2023-10-03 18:29 | NUR ---
VSS, Confused at times A-Ox2-3 disoriented to time and at times place, denies SOB, denies any pain, ambulates with 1x assist and walker, baseline L side weakness, on RA. Lungs diminished, Heart regular, bowel sounds normative, incontinent of urine. Pt request to be full code, notifed, orders changed, can make some needs known, call wu in hand, bed in lowest position.
[2023-10-03 19:49] VITALS: BP 152/91
--- NOTE | 2023-10-04 00:41 | NUR ---
Patient had attended fall while transferring from commode to bed. See post fall assessment for further detail.
[2023-10-04 00:50] VITALS: BP 143/87
[2023-10-04 04:00] VITALS: BP 115/70
[2023-10-04 07:10] VITALS: BP 138/80
[2023-10-04 15:03] VITALS: BP 131/86
--- NOTE | 2023-10-04 15:10 | NUR ---
PATIENT WORKING WITH PT AND PULSE DROPPED TO 35 BPM. PATIENT REPORTS FEELING "DIZZY" ASSISTED PATIENT BACK TO BED. VITAL SIGNS TAKEN AND ARE STABLE. PULSE BACK INTO THE 60'S. DR AUSTIN NOTIFIED AND TELEMETRY AND EKG ORDERED.
[2023-10-04 15:59] LABS: BASOPHILS ABSOLUTE AUTO 0.05 K/mm3 (0.00-0.23); BASOPHILS PERCENT AUTO 1 % (0-2); EOSINOPHILS ABSOLUTE AUTO 0.09 K/mm3 (0.00-0.68); EOSINOPHILS PERCENT AUTO 1 % (0-6); Hematocrit 44.7 % (37.0-53.0); Hemoglobin 14.7 g/dL (13.5-17.5); IMMATURE GRAN ABSOLUTE AUTO 0.03 K/mm3 (0.00-0.10); IMMATURE GRAN PERCENT AUTO 0 % (0-1); LYMPHOCYTES ABSOLUTE AUTO 1.71 K/mm3 (0.84-5.20); LYMPHOCYTES PERCENT AUTO 17 % (21-46); MONOCYTES ABSOLUTE AUTO 0.76 K/mm3 (0.16-1.47); MONOCYTES PERCENT AUTO 7 % (4-13); Mean Corpuscular HGB 29.9 pg (26.0-34.0); Mean Corpuscular HGB Conc 32.9 g/dL (31.5-36.5); Mean Corpuscular Volume 91 fL (80-100); Mean Platelet Volume 11.1 fL (9.1-12.4); NEUTROPHILS ABSOLUTE AUTO 7.73 K/mm3 (1.96-9.15); NEUTROPHILS PERCENT AUTO 75 % (41-73); Platelet Count 220 K/mm3 (150-400); RDW Standard Deviation 43.3 fL (35.1-46.3); Red Blood Cell Count 4.92 M/mm3 (4.30-5.90); White Blood Cell Count 10.37 K/mm3 (4.00-11.30)
[2023-10-04 16:26] LABS: Albumin, Blood 3.1 g/dL (3.4-5.0); Albumin/Globulin Ratio 0.9 (0.8-1.8); Bilirubin, Total 0.9 mg/dL (0.1-1.0); Bun/Creatinine Ratio 17.8 (12.0-20.0); Calcium, Blood 8.8 mg/dL (8.5-10.1); Creatinine, Blood 1.01 mg/dL (0.60-1.20); Globulin, Blood 3.3 g/dL (2.2-4.0); Magnesium, Blood 2.5 mg/dL (1.6-2.4); Phosphorus, Blood 3.4 mg/dL (2.5-4.9); Potassium, Blood 3.9 mmol/L (3.5-5.5); Thyroid Stimulating Hormone 1.27 uIU/mL (0.360-4.800); Total Protein, Blood 6.4 g/dL (6.4-8.2)
--- NOTE | 2023-10-04 18:31 | NUR ---
PATIENT A/O X2-3, COOPERATIVE WITH CARE AND ABLE TO MAKE NEEDS KNOWN. HR DROPPED WHILE WORKING WITH THERAPY TO 35 BPM. PATIENT ASSISTED BACK TO BED AND TELEMETRY ORDERED. PATIENT IS RUNNING SR WITH PVC'S IN THE 80'S PER REGULATORY ANALYST. POWERGLIDE PLACED FOR IV ACCESS. FALL PRECAUTIONS IN PLACE THROUGHOUT THE SHIFT. PATIENT REQUIRES MULTIPLE QUES WITH TRANSFERS. L SIDED WEAKNESS FROM HX OF CVA. COURT HEARING TODAY TO DISCUSS GUARDIANSHIP.
[2023-10-04 19:46] VITALS: BP 121/76
[2023-10-05 04:04] VITALS: BP 129/81
--- NOTE | 2023-10-05 04:26 | NUR ---
SHIFT SUMMARY PT RESTING AND APPEARS TO HAVE SLEPT OFF AND ON THIS SHIFT. PT PLEASANT AND COOPERATIVE. PT UP TO BATHROOM WITH FWW TWICE THIS SHIFT. BED IN LOW POSITION AND CALL LIGHT WITHIN HIS REACH. BED ALARM ON FOR PT SAFETY. WILL CONTINUE TO MONITOR.
[2023-10-05 07:01] VITALS: BP 127/76
[2023-10-05 15:00] VITALS: BP 126/73
--- NOTE | 2023-10-05 16:14 | NUR ---
ASSESSED PATIENT THIS SHIFT. DISCUSSED CASE WITH PROVIDER, AND MANUFACTURING BAKER, PATIENTS GUARDIAN NOEL WAS AT BEDSIDE. DISCUSSED CODE STATUS AND POLST THAT HAD BEEN FILLED OUT EARLIER THIS ADMISSION. DISCUSSED POLST WITH PROVIDER AND PATIENT WAS CHANGED BACK TO DNR. SULLY EXPRESSED THAT FAMILY COULD BENIFIT FROM DISCUSSION ABOUT THIS TOPIC. SHE IS PLANNING ON A MEETING TOMORROW AND WILL UPDATE ME WITH TIME SO THAT I MAY ADDRESS THIS CONCERN AND ENSURE THAT EVERYONE IS UNDERSTANDING AND AGREEABLE. PC WILL CONTINUE TO FOLLOW
--- NOTE | 2023-10-05 18:45 | NUR ---
PATIENT A/OX2-3, FALL PRECAUTIONS IN PLACE. PATIENT AMBULATES WITH FWW AND 1 ASSIST. SKIN INTACT. CHANGED BACK TO DNR TODAY. SR WITH BIGEMINAL PVC'S ON TELE IN THE 60'S. PATIENT DENIES ANY CP OR PRESSURE. VSS, ON RA. AWAITING PLACEMENT. NO NEW CONCERNS THIS SHIFT.
[2023-10-05 20:09] VITALS: BP 118/66
[2023-10-06 03:36] VITALS: BP 119/74
[2023-10-06] MEDS ORDERED: Acetaminophen 325 MG TABLET PO PRN (03:45)
--- NOTE | 2023-10-06 05:48 | NUR ---
SHIFT SUMMARY NOC PT A/O 2-3. PLEASANT AND COOPERATIVE WITH CARE. VSS. NO ACUTE CHANGES TO REPORT. PT ON TELE SINUS RHYTHM IN 60'S. POWERGLIDE IN RAJINDER. PT IS IN PROCESS OF HAVING SON TAKE OVER GUARDIANSHIP. PT EXPECTED TO DISCHARGE TUESDAY; 10/07/23 TO [facility]. PT CURRENTLY RESTING WITH BED ALARM ON, BED IN LOWEST POSITION, AND CALL LIGHT WITHIN REACH.
[2023-10-06 08:02] VITALS: BP 129/73
[2023-10-06] MEDS ORDERED: Acetaminophen325 M1 PO (13:46)
[2023-10-06 15:51] VITALS: BP 123/55
--- NOTE | 2023-10-06 18:31 | NUR ---
PATIENT A/O X3 THIS SHIFT, FORGETFUL. FALL PRECAUTIONS IN PLACE. PATIENT UP IN CHAIR FOR MEALS. CONT/INCONTINENT OF URINE. SR WITH BIGEMINAL PVC'S 60-80 BPM. PATIENT TOLERATING REGULAR SOFT DIET. DENIES ANY PAIN OR DISCOMFORT. VSS, ON RA. PLAN IS TO DC TO [facility] TOMORROW.
[2023-10-07 03:50] VITALS: BP 124/63
--- NOTE | 2023-10-07 07:13 | NUR ---
NO ACUTE CHANGES DURING SHIFT. PLAN TO DC TODAY.
[2023-10-07 08:04] VITALS: BP 112/79
--- NOTE | 2023-10-07 11:37 | NUR ---
THIS NURSE CALL [facility] TO GIVE REPORT AT 1135 ON 10/07/23. [employer] RECEIVED REPORT, ALL QUESTIONS ANSWERED. AWAITING TRANSPORT AT THIS TIME. BED IN LOW POSIITON, CALL LIGHT WITHIN REACH. BED ALARM ON
[2023-10-07 11:39] VITALS: BP 126/58
[2023-10-07 11:40] VITALS: BP 126/58
--- NOTE | 2023-10-07 12:28 | NUR ---
DISCHARGE SUMMARY PT DISCHARGED TO [facility]. PT LEFT ROOM VIA WHEELCHAIR WITH TRANSPORT SERVICES AT 1214. REPORT PREVIOUSLY CALLED, SEE PRIOR NOTE. PT PULSE WAS 40 PRIOR TO DISCHARGE, DR AUSTIN NOTIFIED. PT ASYMPTOMATIC AND EAGER FOR DISCHARGE. DR AUSTIN OKAY TO PROCEED WITH DISCHARGE. IV DC'D AND BELONGINGS RETURNED.
== END 2023-10-07 12:14 | disposition home or self-care (01) | DRG 65 ==
LOC: ER 15:20 → MEDS 08-24 15:20 → ENPENDDIS 09-08 18:43 → MEDS 09-09 12:52
PROVIDERS: Emergency Medicine; Internal Medicine; ADMIT Family Medicine
DX: I63.511 Cerebral infarction due to unspecified occlusion or stenosis of right middle cerebral artery (principal); E44.0 Moderate protein-calorie malnutrition; I50.32 Chronic diastolic (congestive) heart failure; Z66 Do not resuscitate; Z51.5 Encounter for palliative care; R62.7 Adult failure to thrive; J44.9 Chronic obstructive pulmonary disease, unspecified; F01.50 Vascular dementia, unspecified severity, without behavioral disturbance, psychotic disturbance, mood disturbance, and anxiety; M19.90 Unspecified osteoarthritis, unspecified site; I11.0 Hypertensive heart disease with heart failure; F15.10 Other stimulant abuse, uncomplicated; G47.33 Obstructive sleep apnea (adult) (pediatric); F17.200 Nicotine dependence, unspecified, uncomplicated; G83.24 Monoplegia of upper limb affecting left nondominant side; R00.1 Bradycardia, unspecified; Z79.82 Long term (current) use of aspirin; Z79.899 Other long term (current) drug therapy; Z79.01 Long term (current) use of anticoagulants; Z86.19 Personal history of other infectious and parasitic diseases; Z68.29 Body mass index [BMI] 29.0-29.9, adult; Z91.148 Patient's other noncompliance with medication regimen for other reason; Z91.199 Patient's noncompliance with other medical treatment and regimen due to unspecified reason
CPT/HCPCS: 0241U; 36415; 70450; 71045; 80048; 80053; 81001; 83735; 84100; 84443; 85025; 92523; 93005; 93010; 93971; 96372; 97110; 97110-CQ; 97112; 97116; 97116-CQ; 97162; 97166; 97530; 97530-CQ; 97535; 99285-25; A9270; C1751; G0378; J1650; J7030